=== PATIENT | female | born 1950 | race Caucasian/White ===

== ENCOUNTER → 2016-05-13 | Outpatient (CLI) | payer MEDICARE, MEDICAID ==
[~2016-05-13] MED LIST: ACIDOPHILIS; AMOXICILLIN 8751 TAB PO; ASPIRIN 81M81 MG/TA2 PO; CALCIUM 600MG+D1 TAB PO; CELLCEPT 250MG250 MG; CELLCEPT 5500 MG/TAB PO; CHLORZOXAZONE500 MG PO; CIPRO 500MG TA500 MG PO; DOMPERIDONE PO; FLAGYL500 MG PO; FLOVENT 44MCG I13 GM IH; GLUCOSAMINE & C1 CA1 PO; IMURAN 50MG TAB50 MG PO; IPRATROPIUM BROM3 M1; IPRATROPIUM BROM3 M1 IH; LEVAQUIN 5500 MG/TA1 PO; LEVAQUIN 750MG750 M1 PO; MASON NATURAL1200 MG PO; MIRALAX PA17 GM/Dose PO; MIRALAX510G PO; MOBIC 7.5MG7.5 MG PO; NORCO 325 MG-51 TAB PO; PREDNISONE 5MG5 MG PO; PREDNISONE20 MG PO; PRILOSEC 20MG20 MG PO; PRISTIQ 50 MG T50 MG PO; PROAIR HFA0.09 MG/AC IH; SYSTANE BALANCE10 M1 OP; ULTRAM 50MG TAB50 MG PO; ZOFRAN 4MG T4 MG/TAB PO; domperidone
[2016-05-13 08:42] LABS: BASO # 0.1 (0.0-0.2); BASO % 0.5 % (0.0-2.0); EOS # 0.3 (0.0-0.7); EOS % 2.8 % (0-4.0); GRAN # 6.7 (1.4-6.5); GRAN % 62.8 % (42.2-75.2); HEMATOCRIT 41.8 % (37.0-47.0); HEMOGLOBIN 13.6 g/dl (12.5-16.0); LYMPH % 28.5 % (20.0-51.0); MEAN CELL VOLUME 92 fl (80.0-100.0); MEAN CORPUSCULAR HEMOGLOBIN 30 pg (27.0-31.0); MEAN CORPUSCULAR HGB CONC 33 g/dl (33.0-37.0); MEAN PLATELET VOLUME 9.6 fl (7.4-10.4); MONO # 0.5 (0.1-0.6); PLATELET COUNT 248 K/mm3 (130-400); RED BLOOD COUNT 4.55 M/mm3 (4.10-5.30); REDCELL DISTRIBUTION WIDTH-CV 12.5 % (11.5-14.5); WHITE BLOOD COUNT 10.6 K/mm3 (4.8-10.8)
[2016-05-13 08:56] LABS: BILIRUBIN,TOTAL 1.2 mg/dL (0.0-1.0); CREATININE, serum 0.64 mg/dL (0.52-1.25); TOTAL PROTEIN 7.2 gm/dL (6.4-8.2)
[2016-05-13 10:27] LABS: POTASSIUM 4.4 mmol/L (3.4-5.0)
== END ==
LOC: COL.LAB 08:03
PROVIDERS: Physician Assistant
DX: K75.4 Autoimmune hepatitis (principal); R74.8 Abnormal levels of other serum enzymes; R10.84 Generalized abdominal pain

== ENCOUNTER 2016-05-29 11:05 | Inpatient (IN) | payer MEDICARE, MEDICAID ==
[~2016-05-29] VITALS: Ht 157.5 cm; Wt 113.8 kg
[~2016-05-29 11:05] MED LIST changes: -ACIDOPHILIS; -AMOXICILLIN 8751 TAB PO; -ASPIRIN 81M81 MG/TA2 PO; -CALCIUM 600MG+D1 TAB PO; -CELLCEPT 250MG250 MG; -CELLCEPT 5500 MG/TAB PO; -FLOVENT 44MCG I13 GM IH; -LEVAQUIN 750MG750 M1 PO; -PROAIR HFA0.09 MG/AC IH
[2016-05-29 12:16] LABS: INFLUENZA B NEGATIVE
[2016-05-29 12:22] LABS: HEMATOCRIT 38.8 % (37.0-47.0); MEAN CELL VOLUME 91 fl (80.0-100.0); MEAN CORPUSCULAR HEMOGLOBIN 31 pg (27.0-31.0); MEAN CORPUSCULAR HGB CONC 34 g/dl (33.0-37.0); MEAN PLATELET VOLUME 9.5 fl (7.4-10.4); PLATELET COUNT 240 K/mm3 (130-400); RED BLOOD COUNT 4.25 M/mm3 (4.10-5.30); REDCELL DISTRIBUTION WIDTH-CV 12.8 % (11.5-14.5)
[2016-05-29 12:25] LABS: ADD PATHOLOGY DIFF REVIEW NO; WHITE BLOOD COUNT 30.5 K/mm3 (4.8-10.8)
[2016-05-29 12:34] LABS: ADJUSTED CALCIUM 9.5 mg/dL (8.4-10.2); BILIRUBIN,TOTAL 2.4 mg/dL (0.0-1.0); CALCIUM 9.5 mg/dL (8.4-10.2); CREATININE, serum 0.78 mg/dL (0.52-1.25); POTASSIUM 4.1 mmol/L (3.4-5.0); TOTAL PROTEIN 7.2 gm/dL (6.4-8.2)
[2016-05-29 12:51] LABS: TROPONIN-I 0.058 ng/mL (0.000-0.034)
[2016-05-29] MEDS ORDERED: CELLCEPT 250MG250 MG (12:59)
[2016-05-29 13:40] LABS: EOSINOPHIL 1 % (0-4); NEUTROPHILS 80 % (42.0-75.2)
[2016-05-29 13:41] LABS: BAND 4 % (0-10); TOTAL CELLS COUNTED 200
[2016-05-29] MEDS ORDERED: CELLCEPT 5500 MG/TAB PO (16:51)
[2016-05-29] MEDS ORDERED: GLUCOSAMINE & C1 CA1 PO (16:52)
[2016-05-29] MEDS ORDERED: PREDNISONE 5MG5 MG PO (16:53)
[2016-05-29] MEDS ORDERED: CALCIUM 600MG+D1 TAB PO (16:53)
[2016-05-29] MEDS ORDERED: ACIDOPHILIS (16:54)
[2016-05-29] MEDS ORDERED: ULTRAM 50MG TAB50 MG PO (16:55)
[2016-05-29 16:56] VITALS: BP 115/74; PULSE 80
[2016-05-29] MEDS ORDERED: NORCO 325 MG-51 TAB PO (16:56)
[2016-05-29] MEDS ORDERED: FLOVENT 44MCG I13 GM IH (17:10)
[2016-05-29] MEDS ORDERED: PROAIR HFA0.09 MG/AC IH (17:10)
[2016-05-29 17:45] LABS: INR 1.2 (0.8-3.0); PROTHROMBIN TIME 13.8 SECONDS (9.7-12.8)
[2016-05-29 17:48] LABS: PARTIAL THROMBOPLASTIN TIME 34.6 SECONDS (26.0-37.0)
[2016-05-29 19:43] VITALS: BP 145/62; PULSE 94; TEMP 98.2
[2016-05-29 20:35] LABS: PH 5 (5-8); URINE APPEARANCE Clear; URINE BACTERIA None Seen /hpf; URINE BILIRUBIN Negative (NEGATIVE); URINE BLOOD 2+ (NEGATIVE); URINE COLOR Yellow; URINE GLUCOSE 2+ (NEGATIVE); URINE KETONE Negative (NEGATIVE); URINE RBC 0-2 /hpf; URINE UROBILINOGEN Negative (NEGATIVE); URINE WBC None Seen /hpf
[2016-05-30 00:42] VITALS: BP 105/51; PULSE 66; TEMP 98.5
[2016-05-30 05:04] VITALS: BP 124/60; PULSE 78; TEMP 97.2
[2016-05-30 07:33] VITALS: BP 149/81; PULSE 86; TEMP 98.6
[2016-05-30 08:13] LABS: ADJUSTED CALCIUM 9.4 mg/dL (8.4-10.2); ALBUMIN 3.8 gm/dL (3.5-5.0); CALCIUM 9.2 mg/dL (8.4-10.2); CREATININE, serum 0.63 mg/dL (0.52-1.25); POTASSIUM 4.2 mmol/L (3.4-5.0); TOTAL PROTEIN 7.1 gm/dL (6.4-8.2)
[2016-05-30 08:24] LABS: TROPONIN-I 0.017 ng/mL (0.000-0.034)
[2016-05-30 08:26] LABS: HEMATOCRIT 37.9 % (37.0-47.0); HEMOGLOBIN 12.3 g/dl (12.5-16.0); MEAN CELL VOLUME 92 fl (80.0-100.0); MEAN CORPUSCULAR HEMOGLOBIN 30 pg (27.0-31.0); MEAN CORPUSCULAR HGB CONC 33 g/dl (33.0-37.0); MEAN PLATELET VOLUME 10.3 fl (7.4-10.4); PLATELET COUNT 218 K/mm3 (130-400); REDCELL DISTRIBUTION WIDTH-CV 12.7 % (11.5-14.5)
[2016-05-30 08:54] LABS: WHITE BLOOD COUNT 29.9 K/mm3 (4.8-10.8)
[2016-05-30 08:55] LABS: ADD PATHOLOGY DIFF REVIEW NO
[2016-05-30 11:02] LABS: BAND 4 % (0-10); NEUTROPHILS 89 % (42.0-75.2); PLATELET ESTIMATE NORMAL (NORMAL)
[2016-05-30 11:03] LABS: TOTAL CELLS COUNTED 100
[2016-05-30 11:33] VITALS: BP 147/74; PULSE 65; TEMP 98.2
[2016-05-30 15:52] VITALS: BP 131/65; PULSE 78; TEMP 98.1
[2016-05-30 21:16] VITALS: BP 154/94; PULSE 91; TEMP 97.3
[2016-05-31 01:54] VITALS: BP 122/55; PULSE 66; TEMP 97.4
[2016-05-31 03:53] VITALS: BP 119/47; PULSE 80; TEMP 98.4
[2016-05-31 07:29] LABS: ADD PATHOLOGY DIFF REVIEW NO
[2016-05-31 07:49] VITALS: BP 117/50; PULSE 69; TEMP 97.6
[2016-05-31 08:15] LABS: HEMATOCRIT 37.4 % (37.0-47.0); MEAN CELL VOLUME 95 fl (80.0-100.0); MEAN CORPUSCULAR HEMOGLOBIN 30 pg (27.0-31.0); MEAN CORPUSCULAR HGB CONC 31 g/dl (33.0-37.0); MEAN PLATELET VOLUME 10.3 fl (7.4-10.4); PLATELET COUNT 236 K/mm3 (130-400); RED BLOOD COUNT 3.92 M/mm3 (4.10-5.30); REDCELL DISTRIBUTION WIDTH-CV 12.9 % (11.5-14.5)
[2016-05-31 08:52] LABS: HEMOGLOBIN 11.6 g/dl (12.5-16.0); WHITE BLOOD COUNT 24.2 K/mm3 (4.8-10.8)
[2016-05-31 10:52] VITALS: BP 97/44; PULSE 64; TEMP 98.3
[2016-05-31] MEDS ORDERED: LEVAQUIN 750MG750 M1 PO (11:18)
[2016-05-31] MEDS ORDERED: PROAIR HFA0.09 MG/AC IH (11:23)
[2016-05-31] MEDS ORDERED: FLOVENT 44MCG I13 GM IH (11:24)
[2016-05-31] MEDS ORDERED: ASPIRIN 81M81 MG/TA2 PO (11:45)
[2016-05-31 14:20] LABS: BAND 4 % (0-10); NEUTROPHILS 68 % (42.0-75.2)
[2016-05-31 14:21] LABS: TOXIC GRANULATION PRESENT
[2016-05-31 14:27] LABS: TOTAL CELLS COUNTED 100
[2016-05-31 14:28] LABS: PLATELET ESTIMATE NORMAL (NORMAL)
== END 2016-05-31 14:00 | disposition home or self-care (01) | DRG 871 ==
LOC: COL.ER 11:05 → MEDICAL 13:33
PROVIDERS: Internal Medicine; Physician Assistant
DX: A41.9 Sepsis, unspecified organism (principal); J18.9 Pneumonia, unspecified organism; J44.9 Chronic obstructive pulmonary disease, unspecified; K75.4 Autoimmune hepatitis; E11.9 Type 2 diabetes mellitus without complications; K21.9 Gastro-esophageal reflux disease without esophagitis; G47.33 Obstructive sleep apnea (adult) (pediatric); F32.9 Major depressive disorder, single episode, unspecified
CPT/HCPCS: 99223-AI; 99233-AI; 99239; J0696; J1650; J1815; J1956; J2270; J7030; J7512; Q9967

== ENCOUNTER → 2016-06-06 | Outpatient (CLI) | payer MEDICARE, MEDICAID ==
[~2016-06-06] MED LIST changes: +ACIDOPHILIS; +AMOXICILLIN 8751 TAB PO; +ASPIRIN 81M81 MG/TA2 PO; +CALCIUM 600MG+D1 TAB PO; +CELLCEPT 250MG250 MG; +CELLCEPT 5500 MG/TAB PO; +FLOVENT 44MCG I13 GM IH; +LEVAQUIN 750MG750 M1 PO; +PROAIR HFA0.09 MG/AC IH
== END ==
LOC: COL.CARD 10:29
DX: Z53.9 Procedure and treatment not carried out, unspecified reason (principal)

== ENCOUNTER → 2016-06-11 | Outpatient (CLI) | payer MEDICARE, MEDICAID | LOC: COL.LAB 10:32 | DX: Z53.9 Procedure and treatment not carried out, unspecified reason (principal) ==

== ENCOUNTER 2016-06-24 21:18 | Emergency (ER) | payer MEDICARE, MEDICAID ==
[~2016-06-24] VITALS: Ht 157.5 cm; Wt 105.5 kg
[~2016-06-24 21:18] MED LIST changes: -AMOXICILLIN 8751 TAB PO
[2016-06-24 21:55] LABS: BASO % 0.3 % (0.0-2.0); EOS # 0.2 (0.0-0.7); EOS % 1.3 % (0-4.0); GRAN # 8.2 (1.4-6.5); GRAN % 68.8 % (42.2-75.2); HEMATOCRIT 40.2 % (37.0-47.0); HEMOGLOBIN 12.8 g/dl (12.5-16.0); LYMPH # 2.9 (1.2-3.4); LYMPH % 24.2 % (20.0-51.0); MEAN CELL VOLUME 93 fl (80.0-100.0); MEAN CORPUSCULAR HEMOGLOBIN 30 pg (27.0-31.0); MEAN CORPUSCULAR HGB CONC 32 g/dl (33.0-37.0); MEAN PLATELET VOLUME 9.8 fl (7.4-10.4); MONO # 0.6 (0.1-0.6); MONO % 4.7 % (1.7-9.3); PLATELET COUNT 233 K/mm3 (130-400); RED BLOOD COUNT 4.32 M/mm3 (4.10-5.30); REDCELL DISTRIBUTION WIDTH-CV 13.4 % (11.5-14.5); WHITE BLOOD COUNT 11.9 K/mm3 (4.8-10.8)
[2016-06-24 22:04] LABS: ADJUSTED CALCIUM 9.1 mg/dL (8.4-10.2); ALANINE AMINOTRANSFERASE 170 U/L (9-52); ALBUMIN 4.1 gm/dL (3.5-5.0); ALKALINE PHOSPHATASE 170 U/L (50-136); ANION GAP 11 mmol/L (7-16); BILIRUBIN,TOTAL 0.9 mg/dL (0.0-1.0); BLOOD UREA NITROGEN 12 mg/dL (7-17); CALCIUM 9.2 mg/dL (8.4-10.2); CARBON DIOXIDE 25 mmol/L (22-30); CHLORIDE 104 mmol/L (98-107); CREATININE, serum 0.77 mg/dL (0.52-1.25); GLUCOSE 177 mg/dL (74-106); POTASSIUM 4.2 mmol/L (3.4-5.0); SODIUM 140 mmol/L (137-145); TOTAL PROTEIN 7.4 gm/dL (6.4-8.2)
[2016-06-24 22:08] LABS: INR 0.9 (0.8-3.0); PROTHROMBIN TIME 10.3 SECONDS (9.7-12.8)
[2016-06-24 22:11] LABS: PARTIAL THROMBOPLASTIN TIME 33.7 SECONDS (26.0-37.0)
[2016-06-24 22:15] LABS: B-TYPE NATRIURETIC PEPTIDE 90 pg/mL (0-125); TROPONIN-I < 0.012 ng/mL (0.000-0.034)
[2016-06-24] MEDS ORDERED: AMOXICILLIN 8751 TAB PO (23:51)
[2016-06-24 23:55] VITALS: BP 125/77; PULSE 68
== END 2016-06-24 23:55 | disposition home or self-care (01) ==
LOC: COL.ER 21:18
PROVIDERS: Emergency Medicine
DX: R07.89 Other chest pain (principal); I10 Essential (primary) hypertension; K21.9 Gastro-esophageal reflux disease without esophagitis; J44.9 Chronic obstructive pulmonary disease, unspecified; J45.909 Unspecified asthma, uncomplicated

== ENCOUNTER → 2016-06-25 | Outpatient (CLI) | payer MEDICARE, MEDICAID ==
[~2016-06-25] MED LIST changes: +AMOXICILLIN 8751 TAB PO
[2016-06-25 10:21] LABS: BASO % 0.4 % (0.0-2.0); EOS # 0.3 (0.0-0.7); EOS % 2.6 % (0-4.0); GRAN # 6.5 (1.4-6.5); GRAN % 60.4 % (42.2-75.2); HEMATOCRIT 40.6 % (37.0-47.0); HEMOGLOBIN 12.8 g/dl (12.5-16.0); LYMPH # 3.4 (1.2-3.4); LYMPH % 31.5 % (20.0-51.0); MEAN CELL VOLUME 93 fl (80.0-100.0); MEAN CORPUSCULAR HEMOGLOBIN 29 pg (27.0-31.0); MEAN CORPUSCULAR HGB CONC 32 g/dl (33.0-37.0); MEAN PLATELET VOLUME 9.5 fl (7.4-10.4); MONO # 0.5 (0.1-0.6); MONO % 4.5 % (1.7-9.3); PLATELET COUNT 226 K/mm3 (130-400); RED BLOOD COUNT 4.37 M/mm3 (4.10-5.30); REDCELL DISTRIBUTION WIDTH-CV 13.4 % (11.5-14.5); WHITE BLOOD COUNT 10.8 K/mm3 (4.8-10.8)
== END ==
LOC: COL.LAB 09:45
PROVIDERS: Physician Assistant
DX: K75.4 Autoimmune hepatitis (principal); J18.8 Other pneumonia, unspecified organism

== ENCOUNTER 2016-07-04 08:30 | Outpatient (RCR) | payer MEDICARE, MEDICAID | END 2016-09-24 | disposition home or self-care (01) | LOC: WSST | DX: T17.320A Food in larynx causing asphyxiation, initial encounter (principal); K21.9 Gastro-esophageal reflux disease without esophagitis; H69.81 Other specified disorders of Eustachian tube, right ear | CPT/HCPCS: G8996-GN; G8997-GN; G8998-GN ==

== ENCOUNTER → 2016-07-04 | Outpatient (CLI) | payer MEDICARE, MEDICAID | LOC: COL.RAD 07-02 08:30 | DX: T17.320A Food in larynx causing asphyxiation, initial encounter (principal); K21.9 Gastro-esophageal reflux disease without esophagitis; H69.81 Other specified disorders of Eustachian tube, right ear | CPT/HCPCS: G8996-GN; G8997-GN; G8998-GN ==

== ENCOUNTER → 2016-07-08 | Outpatient (CLI) | payer MEDICARE, MEDICAID | LOC: MC.RAD 08:20 | DX: Z12.31 Encounter for screening mammogram for malignant neoplasm of breast (principal) ==

== ENCOUNTER → 2016-08-06 | Outpatient (CLI) | payer MEDICARE, MEDICAID ==
[2016-08-06 08:29] LABS: BASO % 0.2 % (0.0-2.0); EOS # 0.2 (0.0-0.7); EOS % 1.5 % (0-4.0); GRAN # 10.2 (1.4-6.5); GRAN % 68.5 % (42.2-75.2); HEMOGLOBIN 12.7 g/dl (12.5-16.0); LYMPH # 3.4 (1.2-3.4); LYMPH % 22.9 % (20.0-51.0); MEAN CELL VOLUME 93 fl (80.0-100.0); MEAN CORPUSCULAR HEMOGLOBIN 30 pg (27.0-31.0); MEAN CORPUSCULAR HGB CONC 32 g/dl (33.0-37.0); MEAN PLATELET VOLUME 9.3 fl (7.4-10.4); MONO # 0.9 (0.1-0.6); MONO % 6.3 % (1.7-9.3); PLATELET COUNT 224 K/mm3 (130-400); RED BLOOD COUNT 4.31 M/mm3 (4.10-5.30); REDCELL DISTRIBUTION WIDTH-CV 14.2 % (11.5-14.5); WHITE BLOOD COUNT 14.8 K/mm3 (4.8-10.8)
[2016-08-06 08:44] LABS: ADJUSTED CALCIUM 9.1 mg/dL (8.4-10.2); ALBUMIN 3.9 gm/dL (3.5-5.0); BILIRUBIN,TOTAL 1.4 mg/dL (0.0-1.0); CREATININE, serum 0.72 mg/dL (0.52-1.25); POTASSIUM 3.9 mmol/L (3.4-5.0); TOTAL PROTEIN 6.7 gm/dL (6.4-8.2)
== END ==
LOC: COL.LAB 07:46
PROVIDERS: Physician Assistant
DX: K75.4 Autoimmune hepatitis (principal); R74.8 Abnormal levels of other serum enzymes; R10.9 Unspecified abdominal pain

== ENCOUNTER → 2016-08-28 | Outpatient (CLI) | payer MEDICARE, MEDICAID | LOC: SUN.DIA 09:00 | DX: E11.65 Type 2 diabetes mellitus with hyperglycemia (principal); E11.42 Type 2 diabetes mellitus with diabetic polyneuropathy; Z68.42 Body mass index [BMI] 45.0-49.9, adult; E66.9 Obesity, unspecified; Z71.3 Dietary counseling and surveillance; E78.5 Hyperlipidemia, unspecified; I10 Essential (primary) hypertension; K75.4 Autoimmune hepatitis; K21.9 Gastro-esophageal reflux disease without esophagitis; R13.10 Dysphagia, unspecified; Z87.891 Personal history of nicotine dependence | CPT/HCPCS: G0108 ==

== ENCOUNTER → 2016-09-18 | Outpatient (CLI) | payer MEDICARE, MEDICAID | LOC: SUN.DIA 10:57 | DX: E11.65 Type 2 diabetes mellitus with hyperglycemia (principal); E66.9 Obesity, unspecified; Z68.41 Body mass index [BMI] 40.0-44.9, adult; Z71.3 Dietary counseling and surveillance; E78.5 Hyperlipidemia, unspecified; I10 Essential (primary) hypertension ==

== ENCOUNTER 2016-11-18 11:00 | Outpatient (RCR) | payer MEDICARE, MEDICAID | END 2016-11-21 | disposition still patient (30) | LOC: WSPT | DX: G57.01 Lesion of sciatic nerve, right lower limb (principal); M70.61 Trochanteric bursitis, right hip; K75.4 Autoimmune hepatitis; E11.9 Type 2 diabetes mellitus without complications; M75.51 Bursitis of right shoulder; M75.52 Bursitis of left shoulder; Z87.891 Personal history of nicotine dependence | CPT/HCPCS: G8978-GP; G8979-GP ==

== ENCOUNTER 2016-11-19 10:30 | Outpatient (RCR) | payer MEDICARE, MEDICAID ==
[2017-01-20] MEDS ORDERED: FLAGYL500 MG PO (10:12)
[2017-01-20] MEDS ORDERED: ZOFRAN 4MG T4 MG/TAB PO (10:12)
[2017-01-20] MEDS ORDERED: CIPRO 500MG TA500 MG PO (10:12)
[2017-01-20] MEDS ORDERED: NORCO 325 MG-51 TAB PO (10:12)
[2017-02-03] MEDS ORDERED: COLACE 100100 MG/CAP PO (18:21)
[2017-02-03] MEDS ORDERED: PERCOCET 325 MG1 TA2 PO (18:21)
== END 2017-02-09 | disposition home or self-care (01) ==
LOC: WSST
DX: R13.12 Dysphagia, oropharyngeal phase (principal)
CPT/HCPCS: G8996-GN; G8997-GN

== ENCOUNTER → 2016-11-26 | Outpatient (CLI) | payer MEDICARE, MEDICAID | LOC: SUN.DIA 10-29 15:28 | DX: E11.40 Type 2 diabetes mellitus with diabetic neuropathy, unspecified (principal); E78.5 Hyperlipidemia, unspecified; I10 Essential (primary) hypertension; E66.9 Obesity, unspecified; Z68.41 Body mass index [BMI] 40.0-44.9, adult; Z71.3 Dietary counseling and surveillance; Z87.891 Personal history of nicotine dependence ==

== ENCOUNTER 2016-12-02 09:29 | Outpatient (RCR) | payer MEDICARE, MEDICAID | END 2016-12-05 09:57 | LOC: WSPT 09:29 | DX: Z01.89 Encounter for other specified special examinations (principal) ==

== ENCOUNTER 2017-01-20 07:01 | Emergency (ER) | payer MEDICARE, MEDICAID ==
[~2017-01-20] VITALS: Ht 152.4 cm; Wt 98.6 kg
[2017-01-20 07:04] VITALS: TEMP 98.7
[2017-01-20 08:18] LABS: BASO % 0.3 % (0.0-2.0); EOS # 0.2 (0.0-0.7); EOS % 2.2 % (0-4.0); GRAN # 6.2 (1.4-6.5); GRAN % 67.1 % (42.2-75.2); HEMATOCRIT 34.9 % (37.0-47.0); LYMPH # 2.1 (1.2-3.4); LYMPH % 22.3 % (20.0-51.0); MEAN CELL VOLUME 91 fl (80.0-100.0); MEAN CORPUSCULAR HEMOGLOBIN 29 pg (27.0-31.0); MEAN CORPUSCULAR HGB CONC 32 g/dl (33.0-37.0); MEAN PLATELET VOLUME 9.4 fl (7.4-10.4); MONO # 0.7 (0.1-0.6); MONO % 7.9 % (1.7-9.3); PLATELET COUNT 209 K/mm3 (130-400); RED BLOOD COUNT 3.82 M/mm3 (4.10-5.30); REDCELL DISTRIBUTION WIDTH-CV 14.1 % (11.5-14.5); WHITE BLOOD COUNT 9.2 K/mm3 (4.8-10.8)
[2017-01-20 08:39] LABS: ADJUSTED CALCIUM 8.9 mg/dL (8.4-10.2); ALBUMIN 3.7 gm/dL (3.5-5.0); BILIRUBIN,TOTAL 1.1 mg/dL (0.0-1.0); CALCIUM 8.7 mg/dL (8.4-10.2); CREATININE, serum 0.65 mg/dL (0.52-1.25); TOTAL PROTEIN 6.5 gm/dL (6.4-8.2)
[2017-01-20 09:38] LABS: PH 7 (5-8); SQUAMOUS EPITHELIAL 0-2 /hpf; URINE APPEARANCE Clear; URINE BACTERIA Rare /hpf; URINE BILIRUBIN Negative (NEGATIVE); URINE BLOOD 1+ (NEGATIVE); URINE COLOR Straw; URINE GLUCOSE Negative (NEGATIVE); URINE KETONE Negative (NEGATIVE); URINE RBC 0-2 /hpf; URINE UROBILINOGEN Negative (NEGATIVE); URINE WBC 0-2 /hpf
[2017-01-20] MEDS ORDERED: NORCO 325 MG-51 TAB PO (10:12)
[2017-01-20] MEDS ORDERED: FLAGYL500 MG PO (10:12)
[2017-01-20] MEDS ORDERED: ZOFRAN 4MG T4 MG/TAB PO (10:12)
[2017-01-20] MEDS ORDERED: CIPRO 500MG TA500 MG PO (10:12)
[2017-01-20 10:29] VITALS: BP 117/70; PULSE 78
== END 2017-01-20 10:40 | disposition home or self-care (01) ==
LOC: COL.ER 07:01
PROVIDERS: Emergency Medicine
DX: K57.92 Diverticulitis of intestine, part unspecified, without perforation or abscess without bleeding (principal); Z79.82 Long term (current) use of aspirin; E11.9 Type 2 diabetes mellitus without complications; J44.9 Chronic obstructive pulmonary disease, unspecified; F32.9 Major depressive disorder, single episode, unspecified; Z87.891 Personal history of nicotine dependence; Z87.19 Personal history of other diseases of the digestive system; Z90.711 Acquired absence of uterus with remaining cervical stump; Z90.89 Acquired absence of other organs; Z98.890 Other specified postprocedural states
CPT/HCPCS: J2405; J3010; J7030; Q9967

== ENCOUNTER 2017-02-03 13:32 | Day surgery (SDC) | payer MEDICARE, MEDICAID ==
[2017-02-03] VITALS (8 sets, daily range): BP systolic 99–158; BP diastolic 53–84; PULSE 62–78; TEMP 98–98.7
[~2017-02-03] VITALS: Ht 152.4 cm; Wt 98.9 kg
[2017-02-03] MEDS ORDERED: COLACE 100100 MG/CAP PO (18:21)
[2017-02-03] MEDS ORDERED: PERCOCET 325 MG1 TA2 PO (18:21)
== END 2017-02-03 23:25 | disposition home or self-care (01) ==
LOC: SDCO 13:32 → SURG 18:10 → SDCO 21:13 → SURG 23:25 → SDCO 23:25
DX: K81.1 Chronic cholecystitis (principal); K21.9 Gastro-esophageal reflux disease without esophagitis; J44.9 Chronic obstructive pulmonary disease, unspecified; K57.92 Diverticulitis of intestine, part unspecified, without perforation or abscess without bleeding; G47.33 Obstructive sleep apnea (adult) (pediatric); E11.40 Type 2 diabetes mellitus with diabetic neuropathy, unspecified; K75.4 Autoimmune hepatitis; Z68.41 Body mass index [BMI] 40.0-44.9, adult; M79.7 Fibromyalgia; M19.90 Unspecified osteoarthritis, unspecified site; R20.2 Paresthesia of skin; R13.10 Dysphagia, unspecified; F17.210 Nicotine dependence, cigarettes, uncomplicated; D64.9 Anemia, unspecified; Z88.8 Allergy status to other drugs, medicaments and biological substances
CPT/HCPCS: OP; J1100; J1170; J1885; J2405; J2704; J2710; J2765; J3010; J7030; Q9967

== ENCOUNTER → 2017-03-25 | Outpatient (CLI) | payer MEDICARE, MEDICAID ==
[~2017-03-25] MED LIST changes: +COLACE 100100 MG/CAP PO; +PERCOCET 325 MG1 TA2 PO
== END ==
LOC: SUN.DIA 09:33
DX: E11.40 Type 2 diabetes mellitus with diabetic neuropathy, unspecified (principal); E78.5 Hyperlipidemia, unspecified; I10 Essential (primary) hypertension; E66.9 Obesity, unspecified; Z68.41 Body mass index [BMI] 40.0-44.9, adult; Z71.3 Dietary counseling and surveillance; Z87.891 Personal history of nicotine dependence
CPT/HCPCS: G0108

== ENCOUNTER → 2017-05-16 | Outpatient (CLI) | payer MEDICARE, MEDICAID ==
[~2017-05-16] VITALS: Ht 157.5 cm; Wt 96.1 kg
[~2017-05-16] MED LIST changes: -ACIDOPHILIS; +ACIDOPHILIS PO; +ASPIRIN E.C. 8181 MG PO; +BACTROBAN NASA0.9 GM NS; +DOXYCYCLINE 10100 MG PO
[2017-05-16 08:28] VITALS: BP 150/75; PULSE 67
[2017-05-16 10:22] VITALS: BP 141/65; PULSE 87
[2017-05-16 10:30] VITALS: BP 109/40; PULSE 79
[2017-05-16 10:45] VITALS: BP 122/73; PULSE 79
[2017-05-16 11:00] VITALS: BP 134/80; PULSE 82
== END ==
LOC: COL.RAD 08:02
DX: M16.0 Bilateral primary osteoarthritis of hip (principal); M70.62 Trochanteric bursitis, left hip; M70.61 Trochanteric bursitis, right hip; M76.11 Psoas tendinitis, right hip; M47.816 Spondylosis without myelopathy or radiculopathy, lumbar region; Z98.890 Other specified postprocedural states
CPT/HCPCS: G9654; J2405; J2704; J3010

== ENCOUNTER 2017-06-16 21:21 | Emergency (ER) | payer MEDICARE, MEDICAID ==
[~2017-06-16] VITALS: Ht 165.1 cm; Wt 93.6 kg
[2017-06-16 21:24] VITALS: BP 136/68; TEMP 101.6
[2017-06-16] MEDS ORDERED: TAMIFLU 75MG75 MG PO (22:42)
[2017-06-16 22:56] VITALS: PULSE 72
== END 2017-06-16 22:56 | disposition home or self-care (01) ==
LOC: COL.ER 21:21
DX: J10.1 Influenza due to other identified influenza virus with other respiratory manifestations (principal); E11.9 Type 2 diabetes mellitus without complications; I10 Essential (primary) hypertension; J44.9 Chronic obstructive pulmonary disease, unspecified; K75.4 Autoimmune hepatitis; F32.9 Major depressive disorder, single episode, unspecified; Z87.19 Personal history of other diseases of the digestive system; Z90.710 Acquired absence of both cervix and uterus; Z90.89 Acquired absence of other organs; Z98.890 Other specified postprocedural states; Z79.82 Long term (current) use of aspirin; Z79.51 Long term (current) use of inhaled steroids

== ENCOUNTER 2017-07-02 05:51 | Emergency (ER) | payer MEDICARE, MEDICAID ==
[~2017-07-02] VITALS: Ht 157.5 cm; Wt 93.6 kg
[~2017-07-02 05:51] MED LIST changes: +TAMIFLU 75MG75 MG PO
[2017-07-02 05:54] VITALS: TEMP 97.2
[2017-07-02 06:16] LABS: BASO % 0.3 % (0.0-2.0); EOS # 0.2 (0.0-0.7); EOS % 1.8 % (0-4.0); GRAN % 61.5 % (42.2-75.2); HEMATOCRIT 38.2 % (37.0-47.0); HEMOGLOBIN 12.5 g/dl (12.5-16.0); LYMPH # 3.5 (1.2-3.4); LYMPH % 30.7 % (20.0-51.0); MEAN CELL VOLUME 90 fl (80.0-100.0); MEAN CORPUSCULAR HEMOGLOBIN 30 pg (27.0-31.0); MEAN CORPUSCULAR HGB CONC 33 g/dl (33.0-37.0); MEAN PLATELET VOLUME 9.2 fl (7.4-10.4); MONO # 0.6 (0.1-0.6); MONO % 5.4 % (1.7-9.3); PLATELET COUNT 255 K/mm3 (130-400); RED BLOOD COUNT 4.23 M/mm3 (4.10-5.30); REDCELL DISTRIBUTION WIDTH-CV 13.4 % (11.5-14.5)
[2017-07-02 06:25] LABS: ALANINE AMINOTRANSFERASE 27 U/L (9-52); ALBUMIN 4.2 gm/dL (3.5-5.0); ALKALINE PHOSPHATASE 94 U/L (50-136); ANION GAP 10 mmol/L (7-16); AST,SGOT 20 U/L (15-37); BILIRUBIN,TOTAL 0.4 mg/dL (0.0-1.0); BLOOD UREA NITROGEN 15 mg/dL (7-17); CALCIUM 8.9 mg/dL (8.4-10.2); CARBON DIOXIDE 27 mmol/L (22-30); CHLORIDE 105 mmol/L (98-107); CREATININE, serum 0.66 mg/dL (0.52-1.25); GLUCOSE 101 mg/dL (74-106); POTASSIUM 4.4 mmol/L (3.4-5.0); SODIUM 142 mmol/L (137-145)
[2017-07-02 06:34] LABS: PROTHROMBIN TIME 11.7 SECONDS (9.7-12.8)
[2017-07-02 06:49] LABS: TROPONIN-I < 0.012 ng/mL (0.000-0.034)
[2017-07-02] MEDS ORDERED: ARMONAIR RESPI55 MCG IH (08:59)
[2017-07-02] MEDS ORDERED: COLACE 100100 MG/CAP PO (09:00)
[2017-07-02] MEDS ORDERED: CALCIUM CARBON650 M2 PO (09:01)
[2017-07-02 10:38] VITALS: BP 117/65; PULSE 66
== END 2017-07-02 10:48 | disposition home or self-care (01) ==
LOC: COL.ER 05:51
PROVIDERS: Emergency Medicine
DX: R07.89 Other chest pain (principal); E11.9 Type 2 diabetes mellitus without complications; J44.9 Chronic obstructive pulmonary disease, unspecified; Z87.19 Personal history of other diseases of the digestive system; Z90.710 Acquired absence of both cervix and uterus; Z90.89 Acquired absence of other organs; Z98.84 Bariatric surgery status; Z79.51 Long term (current) use of inhaled steroids; Z79.82 Long term (current) use of aspirin

== ENCOUNTER → 2017-07-04 | Outpatient (CLI) | payer MEDICARE, MEDICAID ==
[~2017-07-04] MED LIST changes: +ARMONAIR RESPI55 MCG IH; +CALCIUM CARBON650 M2 PO
== END ==
LOC: COL.RAD 09:45
DX: R93.2 Abnormal findings on diagnostic imaging of liver and biliary tract (principal); Z90.49 Acquired absence of other specified parts of digestive tract

== ENCOUNTER → 2017-07-17 | Outpatient (CLI) | payer MEDICARE, MEDICAID | LOC: SUN.DIA 12:18 | DX: Z01.89 Encounter for other specified special examinations (principal) ==

== ENCOUNTER 2017-08-28 15:48 | Emergency (ER) | payer MEDICARE, MEDICAID ==
[~2017-08-28] VITALS: Ht 154.9 cm; Wt 96.8 kg
[2017-08-28 15:50] VITALS: TEMP 97.3
[2017-08-28 16:35] LABS: COLLECTION METHOD CLEAN CATCH
[2017-08-28 16:42] LABS: MUCOUS Present /lpf; PH 5 (5-8); URINE APPEARANCE Clear; URINE BACTERIA None Seen /hpf; URINE BILIRUBIN Negative (NEGATIVE); URINE BLOOD 1+ (NEGATIVE); URINE COLOR Yellow; URINE GLUCOSE Negative (NEGATIVE); URINE KETONE Negative (NEGATIVE); URINE LEUKOCYTE ESTERASE Trace (NEGATIVE); URINE NITRATE Negative (NEGATIVE); URINE PROTEIN(semi-quant) Negative (NEGATIVE); URINE UROBILINOGEN Negative (NEGATIVE)
[2017-08-28 17:00] LABS: BASO % 0.3 % (0.0-2.0); EOS # 0.2 (0.0-0.7); EOS % 2.2 % (0-4.0); GRAN # 4.9 (1.4-6.5); GRAN % 62.1 % (42.2-75.2); HEMATOCRIT 38.5 % (37.0-47.0); HEMOGLOBIN 12.4 g/dl (12.5-16.0); LYMPH # 2.3 (1.2-3.4); LYMPH % 29.7 % (20.0-51.0); MEAN CELL VOLUME 91 fl (80.0-100.0); MEAN CORPUSCULAR HEMOGLOBIN 29 pg (27.0-31.0); MEAN CORPUSCULAR HGB CONC 32 g/dl (33.0-37.0); MEAN PLATELET VOLUME 9.9 fl (7.4-10.4); MONO # 0.4 (0.1-0.6); MONO % 5.4 % (1.7-9.3); PLATELET COUNT 207 K/mm3 (130-400); RED BLOOD COUNT 4.22 M/mm3 (4.10-5.30); REDCELL DISTRIBUTION WIDTH-CV 13.1 % (11.5-14.5)
[2017-08-28 17:15] LABS: TOTAL PROTEIN 7.2 gm/dL (6.4-8.2)
[2017-08-28 17:17] LABS: ALANINE AMINOTRANSFERASE 40 U/L (9-52); ALBUMIN 3.9 gm/dL (3.5-5.0); ALKALINE PHOSPHATASE 96 U/L (50-136); ANION GAP 12 mmol/L (7-16); AST,SGOT 41 U/L (15-37); BILIRUBIN,TOTAL 0.7 mg/dL (0.0-1.0); BLOOD UREA NITROGEN 14 mg/dL (7-17); C-REACTIVE PROTEIN 1.4 mg/dL (0.0-0.9); CARBON DIOXIDE 26 mmol/L (22-30); CHLORIDE 103 mmol/L (98-107); CREATININE, serum 0.67 mg/dL (0.52-1.25); GLUCOSE 121 mg/dL (74-106); POTASSIUM 3.9 mmol/L (3.4-5.0); SODIUM 141 mmol/L (137-145)
[2017-08-28 17:26] LABS: TROPONIN-I < 0.012 ng/mL (0.000-0.034)
[2017-08-28] MEDS ORDERED: ZOFRAN 4MG T4 MG/TAB PO (18:28)
[2017-08-28] MEDS ORDERED: ANTIVERT 25MG25 MG PO (18:28)
[2017-08-28 19:24] VITALS: BP 110/70; PULSE 70
== END 2017-08-28 19:27 | disposition home or self-care (01) ==
LOC: COL.ER 15:48
PROVIDERS: Emergency Medicine
DX: R42 Dizziness and giddiness (principal); J44.9 Chronic obstructive pulmonary disease, unspecified; E11.9 Type 2 diabetes mellitus without complications; F32.9 Major depressive disorder, single episode, unspecified; K75.4 Autoimmune hepatitis; Z87.891 Personal history of nicotine dependence; Z79.82 Long term (current) use of aspirin; Z79.51 Long term (current) use of inhaled steroids
CPT/HCPCS: J2060; J2405; J7030

== ENCOUNTER → 2017-09-01 | Outpatient (CLI) | payer MEDICARE, MEDICAID ==
[~2017-09-01] MED LIST changes: +ANTIVERT 25MG25 MG PO
== END ==
LOC: MC.RAD 09:40
DX: Z12.31 Encounter for screening mammogram for malignant neoplasm of breast (principal)

== ENCOUNTER 2017-09-02 18:44 | Emergency (ER) | payer MEDICARE, MEDICAID ==
[~2017-09-02] VITALS: Ht 154.9 cm; Wt 96.8 kg
[2017-09-02 18:52] VITALS: BP 150/62; TEMP 98.4
[2017-09-02 19:46] VITALS: PULSE 75
== END 2017-09-02 19:46 | disposition home or self-care (01) ==
LOC: COL.ER 18:44
DX: S80.11XA Contusion of right lower leg, initial encounter (principal); Z79.82 Long term (current) use of aspirin; Z79.51 Long term (current) use of inhaled steroids; Y92.410 Unspecified street and highway as the place of occurrence of the external cause; W01.0XXA Fall on same level from slipping, tripping and stumbling without subsequent striking against object, initial encounter

== ENCOUNTER 2017-09-22 09:58 | Emergency (ER) | payer MEDICARE, MEDICAID ==
[~2017-09-22] VITALS: Ht 152.4 cm; Wt 99.1 kg
[2017-09-22 10:16] VITALS: TEMP 98
[2017-09-22] MEDS ORDERED: PRISTIQ 50 MG T50 MG PO (10:30)
[2017-09-22] MEDS ORDERED: PRIL40 PO (10:31)
[2017-09-22 11:56] VITALS: BP 116/69; PULSE 74
== END 2017-09-22 11:56 | disposition home or self-care (01) ==
LOC: COL.ER 09:58
DX: S96.911A Strain of unspecified muscle and tendon at ankle and foot level, right foot, initial encounter (principal); R07.89 Other chest pain; Z79.82 Long term (current) use of aspirin; Z79.51 Long term (current) use of inhaled steroids; Z87.891 Personal history of nicotine dependence; W18.09XA Striking against other object with subsequent fall, initial encounter

== ENCOUNTER → 2017-09-25 | Outpatient (CLI) | payer MEDICARE, MEDICAID ==
[~2017-09-25] VITALS: Ht 152.4 cm; Wt 97.9 kg
[~2017-09-25] MED LIST changes: +PRIL40 PO
[2017-09-25 08:37] VITALS: BP 116/56; PULSE 66
[2017-09-25 09:30] VITALS: BP 100/58; PULSE 66
[2017-09-25 09:35] VITALS: BP 117/77; PULSE 66
[2017-09-25 10:00] VITALS: BP 120/75; PULSE 67
== END ==
LOC: COL.RAD 08:10
DX: M47.817 Spondylosis without myelopathy or radiculopathy, lumbosacral region (principal); M48.061 Spinal stenosis, lumbar region without neurogenic claudication; M51.36 Other intervertebral disc degeneration, lumbar region; J00 Acute nasopharyngitis [common cold]
CPT/HCPCS: G9654; J2704; J7030

== ENCOUNTER 2017-10-28 08:39 | Outpatient (RCR) | payer MEDICARE, MEDICAID | END 2017-12-02 15:40 | disposition home or self-care (01) | LOC: WSPT 08:39 | DX: M51.36 Other intervertebral disc degeneration, lumbar region (principal) | CPT/HCPCS: G8978-GP; G8979-GP ==

== ENCOUNTER 2017-11-03 08:24 | Emergency (ER) | payer MEDICARE, MEDICAID ==
[~2017-11-03] VITALS: Ht 154.9 cm; Wt 96.8 kg
[2017-11-03 08:28] VITALS: BP 129/59; TEMP 99.6
[2017-11-03 09:22] VITALS: PULSE 62
== END 2017-11-03 09:28 | disposition home or self-care (01) ==
LOC: COL.ER 08:24
DX: S43.401A Unspecified sprain of right shoulder joint, initial encounter (principal); I10 Essential (primary) hypertension; Z79.51 Long term (current) use of inhaled steroids; Z79.82 Long term (current) use of aspirin; W06.XXXA Fall from bed, initial encounter

== ENCOUNTER 2018-01-25 20:30 | Emergency (ER) | payer MEDICARE, MEDICAID ==
[~2018-01-25] VITALS: Ht 157.5 cm; Wt 98.6 kg
[2018-01-25 20:33] VITALS: TEMP 99.5
[2018-01-25 21:17] LABS: BASO % 0.2 % (0.0-2.0); EOS # 0.2 (0.0-0.7); EOS % 1.4 % (0-4.0); GRAN # 9.9 (1.4-6.5); GRAN % 81.2 % (42.2-75.2); HEMATOCRIT 38.5 % (37.0-47.0); HEMOGLOBIN 12.5 g/dl (12.5-16.0); LYMPH # 1.4 (1.2-3.4); LYMPH % 11.5 % (20.0-51.0); MEAN CELL VOLUME 92 fl (80.0-100.0); MEAN CORPUSCULAR HEMOGLOBIN 30 pg (27.0-31.0); MEAN CORPUSCULAR HGB CONC 33 g/dl (33.0-37.0); MEAN PLATELET VOLUME 8.6 fl (7.4-10.4); MONO # 0.7 (0.1-0.6); MONO % 5.4 % (1.7-9.3); PLATELET COUNT 268 K/mm3 (130-400); RED BLOOD COUNT 4.19 M/mm3 (4.10-5.30); REDCELL DISTRIBUTION WIDTH-CV 13.2 % (11.5-14.5)
[2018-01-25 21:32] LABS: BILIRUBIN,TOTAL 0.5 mg/dL (0.0-1.0); C-REACTIVE PROTEIN 3.6 mg/dL (0.0-0.9); CALCIUM 9.4 mg/dL (8.4-10.2); CREATININE, serum 0.6 mg/dL (0.52-1.25); POTASSIUM 4.2 mmol/L (3.4-5.0); TOTAL PROTEIN 7.4 gm/dL (6.4-8.2)
[2018-01-25 21:41] LABS: ERYTHROCYTE SEDIMENTATION RATE 34 mm/hr (0-30)
[2018-01-25] MEDS ORDERED: ROXICODONE 55 MG/TAB PO (21:51)
[2018-01-25] MEDS ORDERED: PHENERGAN 25 TA25 MG PO (21:52)
[2018-01-25 23:05] VITALS: BP 145/55; PULSE 85
== END 2018-01-25 23:05 | disposition home or self-care (01) ==
LOC: COL.ER 20:30
PROVIDERS: Emergency Medicine
DX: G89.18 Other acute postprocedural pain (principal); M25.511 Pain in right shoulder; E11.9 Type 2 diabetes mellitus without complications; F17.210 Nicotine dependence, cigarettes, uncomplicated; J44.9 Chronic obstructive pulmonary disease, unspecified; Z79.82 Long term (current) use of aspirin; Z79.51 Long term (current) use of inhaled steroids
CPT/HCPCS: J1170; J2550

== ENCOUNTER 2018-06-13 00:27 | Emergency (ER) | payer MEDICARE, MEDICAID ==
[~2018-06-13] VITALS: Ht 154.9 cm; Wt 97.7 kg
[~2018-06-13 00:27] MED LIST changes: +CENTANY2%; +CLOTRIM ANTIFUNGAL1% TP; +DOXYCYCLINE HY100 MG; +FLEXERIL 1010 MG/TAB PO; +MUCINEX1200 MG PO; +NITROSTAT0.4 MG/TAB SL; +NORCO 325 MG-7.1 TAB PO; +OCUFLOX OPHTH DR5 ML OP; +OMEGA-3 FISH1000 MG PO; +PATADAY 2.5 ML2.5 ML OU; +PHENERGAN 25 TA25 MG PO; +REGLAN 5MG T5 MG/TAB PO; +ROXICODONE 55 MG/TAB PO; +SINGULAIR 110 MG/TAB PO; +TESSALON P100 MG/CAP PO; +TRAVEL SICKNESS25 MG PO; +VENTOLIN0.09 MG IH; +VITAMIND3 5000 PO; +ZOFRAN ODT4 MG PO; +ZYRTEC 10MG10 MG PO
[2018-06-13 00:34] VITALS: TEMP 99.7
[2018-06-13 01:18] LABS: BASO % 0.3 % (0.0-2.0); EOS # 0.3 (0.0-0.7); EOS % 3.9 % (0-4.0); GRAN % 68.6 % (42.2-75.2); HEMATOCRIT 40.2 % (37.0-47.0); HEMOGLOBIN 13.1 g/dl (12.5-16.0); LYMPH # 1.4 (1.2-3.4); LYMPH % 19.2 % (20.0-51.0); MEAN CELL VOLUME 88 fl (80.0-100.0); MEAN CORPUSCULAR HEMOGLOBIN 29 pg (27.0-31.0); MEAN CORPUSCULAR HGB CONC 33 g/dl (33.0-37.0); MONO # 0.6 (0.1-0.6); MONO % 7.6 % (1.7-9.3); PLATELET COUNT 191 K/mm3 (130-400); RED BLOOD COUNT 4.55 M/mm3 (4.10-5.30); REDCELL DISTRIBUTION WIDTH-CV 13.9 % (11.5-14.5)
[2018-06-13 01:30] LABS: ALBUMIN 4.3 gm/dL (3.5-5.0); BILIRUBIN,TOTAL 0.7 mg/dL (0.0-1.0); CALCIUM 9.3 mg/dL (8.4-10.2); CREATININE, serum 0.62 mg/dL (0.52-1.25); POTASSIUM 3.9 mmol/L (3.4-5.0); TOTAL PROTEIN 7.8 gm/dL (6.4-8.2)
[2018-06-13] MEDS ORDERED: TESSALON PERLE200 MG PO (02:52)
[2018-06-13] MEDS ORDERED: ZITHROMAX500 M2 PO (02:52)
[2018-06-13 03:10] VITALS: BP 121/60; PULSE 82
== END 2018-06-13 03:19 | disposition home or self-care (01) ==
LOC: COL.ER 00:27
PROVIDERS: Emergency Medicine
DX: J40 Bronchitis, not specified as acute or chronic (principal); B34.9 Viral infection, unspecified; E11.9 Type 2 diabetes mellitus without complications; I25.10 Atherosclerotic heart disease of native coronary artery without angina pectoris; J44.9 Chronic obstructive pulmonary disease, unspecified; Z90.710 Acquired absence of both cervix and uterus; Z87.891 Personal history of nicotine dependence; Z90.49 Acquired absence of other specified parts of digestive tract; Z79.82 Long term (current) use of aspirin; Z79.51 Long term (current) use of inhaled steroids
CPT/HCPCS: J7030

== ENCOUNTER 2018-08-27 10:10 | Outpatient (RCR) | payer MEDICARE, MEDICAID ==
[~2018-08-27 10:10] MED LIST changes: +TESSALON PERLE200 MG PO; +ZITHROMAX500 M2 PO
== END 2018-09-24 09:51 | disposition home or self-care (01) ==
LOC: WSPT 10:10
DX: M54.2 Cervicalgia (principal); M54.9 Dorsalgia, unspecified; G89.29 Other chronic pain

== ENCOUNTER 2018-11-16 10:30 | Outpatient (RCR) | payer MEDICARE, MEDICAID ==
[2018-12-23] MEDS ORDERED: PERCOCET 325 MG1 TA2 PO (14:16)
[2018-12-23] MEDS ORDERED: FLEXERIL5 MG PO (14:16)
== END 2019-01-17 ==
LOC: WSC
DX: G89.29 Other chronic pain (principal); M25.511 Pain in right shoulder; M25.512 Pain in left shoulder; M54.2 Cervicalgia

== ENCOUNTER 2018-12-23 09:31 | Emergency (ER) | payer MEDICARE, MEDICAID ==
[~2018-12-23] VITALS: Ht 154.9 cm; Wt 100.0 kg
[2018-12-23 10:29] LABS: COLLECTION METHOD CLEAN CATCH
[2018-12-23 10:35] LABS: BASO % 0.4 % (0.0-2.0); EOS # 0.2 (0.0-0.7); GRAN # 4.5 (1.4-6.5); GRAN % 59.1 % (42.2-75.2); HEMATOCRIT 41.1 % (37.0-47.0); HEMOGLOBIN 13.4 g/dl (12.5-16.0); LYMPH # 2.3 (1.2-3.4); LYMPH % 30.3 % (20.0-51.0); MEAN CELL VOLUME 90 fl (80.0-100.0); MEAN CORPUSCULAR HEMOGLOBIN 29 pg (27.0-31.0); MEAN CORPUSCULAR HGB CONC 33 g/dl (33.0-37.0); MEAN PLATELET VOLUME 9.4 fl (7.4-10.4); MONO # 0.5 (0.1-0.6); MONO % 6.8 % (1.7-9.3); PLATELET COUNT 219 K/mm3 (130-400); RED BLOOD COUNT 4.57 M/mm3 (4.10-5.30); REDCELL DISTRIBUTION WIDTH-CV 13.5 % (11.5-14.5)
[2018-12-23 10:52] LABS: MUCOUS Present /lpf; PH 6 (5-8); SQUAMOUS EPITHELIAL 0-2 /hpf; URINE APPEARANCE Hazy; URINE BACTERIA None Seen /hpf; URINE BILIRUBIN Negative (NEGATIVE); URINE BLOOD 1+ (NEGATIVE); URINE COLOR Yellow; URINE GLUCOSE Negative (NEGATIVE); URINE KETONE Negative (NEGATIVE); URINE LEUKOCYTE ESTERASE Negative (NEGATIVE); URINE NITRATE Negative (NEGATIVE); URINE PROTEIN(semi-quant) Negative (NEGATIVE); URINE UROBILINOGEN Negative (NEGATIVE)
[2018-12-23 10:59] LABS: TROPONIN-I < 0.012 ng/mL (0.000-0.035)
[2018-12-23 11:41] LABS: ALBUMIN 4.5 gm/dL (3.5-5.0); CALCIUM 9.7 mg/dL (8.4-10.2); CREATININE, serum 0.54 (0.52-1.25); POTASSIUM 4.6 mmol/L (3.4-5.0); TOTAL PROTEIN 7.9 gm/dL (6.4-8.2)
[2018-12-23] MEDS ORDERED: FLEXERIL5 MG PO (14:16)
[2018-12-23] MEDS ORDERED: PERCOCET 325 MG1 TA2 PO (14:16)
[2018-12-23 14:22] VITALS: BP 122/82; PULSE 60; TEMP 98.2
== END 2018-12-23 14:36 | disposition home or self-care (01) ==
LOC: COL.ER 09:31
PROVIDERS: Emergency Medicine
DX: R10.9 Unspecified abdominal pain (principal); I10 Essential (primary) hypertension; I25.2 Old myocardial infarction; J44.9 Chronic obstructive pulmonary disease, unspecified; Z90.49 Acquired absence of other specified parts of digestive tract; Z90.89 Acquired absence of other organs; Z90.710 Acquired absence of both cervix and uterus; Z79.51 Long term (current) use of inhaled steroids
CPT/HCPCS: J3010; J7030; Q9967

== ENCOUNTER 2018-12-28 17:58 | Emergency (ER) | payer MEDICARE, MEDICAID ==
[~2018-12-28] VITALS: Ht 154.9 cm; Wt 100.0 kg
[~2018-12-28 17:58] MED LIST changes: +FLEXERIL5 MG PO
[2018-12-28 18:03] VITALS: TEMP 97.7
[2018-12-28 19:20] VITALS: BP 137/71; PULSE 78
== END 2018-12-28 19:20 | disposition home or self-care (01) ==
LOC: COL.ER 17:58
DX: S60.221A Contusion of right hand, initial encounter (principal); I10 Essential (primary) hypertension; Z79.82 Long term (current) use of aspirin; X58.XXXA Exposure to other specified factors, initial encounter

== ENCOUNTER 2019-01-25 08:12 | Observation (INO) | payer MEDICARE, MEDICAID ==
[~2019-01-25] VITALS: Ht 152.4 cm; Wt 102.7 kg
[2019-01-25 08:54] LABS: BASO % 0.3 % (0.0-2.0); EOS # 0.2 (0.0-0.7); EOS % 2.6 % (0-4.0); GRAN # 5.2 (1.4-6.5); GRAN % 67.3 % (42.2-75.2); HEMATOCRIT 38.8 % (37.0-47.0); HEMOGLOBIN 12.6 g/dl (12.5-16.0); LYMPH # 1.8 (1.2-3.4); LYMPH % 23.8 % (20.0-51.0); MEAN CELL VOLUME 92 fl (80.0-100.0); MEAN CORPUSCULAR HEMOGLOBIN 30 pg (27.0-31.0); MEAN CORPUSCULAR HGB CONC 33 g/dl (33.0-37.0); MONO # 0.4 (0.1-0.6); MONO % 5.7 % (1.7-9.3); PLATELET COUNT 188 K/mm3 (130-400); RED BLOOD COUNT 4.23 M/mm3 (4.10-5.30); REDCELL DISTRIBUTION WIDTH-CV 13.7 % (11.5-14.5)
[2019-01-25 09:00] LABS: PROTHROMBIN TIME 11.3 SECONDS (9.7-12.8)
[2019-01-25 09:12] LABS: ALANINE AMINOTRANSFERASE 57 U/L (9-52); ALKALINE PHOSPHATASE 77 U/L (50-136); ANION GAP 9 mmol/L (7-16); AST,SGOT 53 U/L (15-37); BLOOD UREA NITROGEN 12 mg/dL (7-17); CARBON DIOXIDE 28 mmol/L (22-30); CHLORIDE 106 mmol/L (98-107); CREATININE, serum 0.62 (0.52-1.25); GLUCOSE 99 mg/dL (74-106); LIPASE 71 U/L (23-300); POTASSIUM 4.3 mmol/L (3.4-5.0); SODIUM 142 mmol/L (137-145); TOTAL PROTEIN 7.1 gm/dL (6.4-8.2)
[2019-01-25 09:15] LABS: D-DIMER < 200.00 ng/mLDDu (200-230)
[2019-01-25 09:31] LABS: TROPONIN-I < 0.012 ng/mL (0.000-0.035)
[2019-01-25 15:13] VITALS: BP 131/62; PULSE 77; TEMP 97.9
[2019-01-25 16:00] VITALS: BP 142/57; PULSE 75; TEMP 97.6
[2019-01-25] MEDS ORDERED: ABILIFY5 MG PO (16:48)
[2019-01-25] MEDS ORDERED: CALCIUM CARBON650 M2 PO (17:04)
[2019-01-25] MEDS ORDERED: GLUCOSAMINE & C1 CA2 PO (17:18)
[2019-01-25] MEDS ORDERED: B COMPLEX #11 TAB PO (17:19)
[2019-01-25] MEDS ORDERED: REQUIP0.25 MG PO (17:20)
[2019-01-25] MEDS ORDERED: PHENERGAN 25 TA25 MG PO (17:21)
--- NOTE | 2019-01-25 19:02 | NUR ---
Patient remains pain free. Has been talking on phone a lot and visiting with daughter. Only concerns are snacks for later tonight. Call light and personal items are within reach.
--- NOTE | 2019-01-25 19:30 | NUR ---
Initial shift assessment done- states is having some chest pain, when questioned more-states it has been going on for about 45minutes, points to epigastric region and of to the right- pt in no distress- sitting in chair eating a large supper- continues to eat while she is telling me about the pain-- Tele on, VSS, pt agrees it could be acid related- wants some saltine cracker and that usually helps she states-
[2019-01-25 19:33] VITALS: BP 123/65; PULSE 83; TEMP 98.9
[2019-01-25 23:48] VITALS: BP 138/54; PULSE 74; TEMP 98.7
[2019-01-26] VITALS (9 sets, daily range): BP systolic 91–152; BP diastolic 55–67; PULSE 69–108; TEMP 97.4–98.9
[2019-01-26 07:10] LABS: BASO % 0.4 % (0.0-2.0); EOS # 0.2 (0.0-0.7); EOS % 2.1 % (0-4.0); GRAN # 4.8 (1.4-6.5); GRAN % 59.8 % (42.2-75.2); HEMATOCRIT 41.1 % (37.0-47.0); HEMOGLOBIN 13.4 g/dl (12.5-16.0); LYMPH # 2.5 (1.2-3.4); LYMPH % 31.4 % (20.0-51.0); MEAN CELL VOLUME 92 fl (80.0-100.0); MEAN CORPUSCULAR HEMOGLOBIN 30 pg (27.0-31.0); MEAN CORPUSCULAR HGB CONC 33 g/dl (33.0-37.0); MEAN PLATELET VOLUME 9.5 fl (7.4-10.4); MONO # 0.5 (0.1-0.6); MONO % 6.1 % (1.7-9.3); PLATELET COUNT 213 K/mm3 (130-400); RED BLOOD COUNT 4.48 M/mm3 (4.10-5.30); REDCELL DISTRIBUTION WIDTH-CV 13.4 % (11.5-14.5)
[2019-01-26 07:20] LABS: ALBUMIN 4.4 gm/dL (3.5-5.0); BILIRUBIN,TOTAL 1.1 mg/dL (0.0-1.0); CALCIUM 9.1 mg/dL (8.4-10.2); CHOLESTEROL RISK RATIO 3.1; CREATININE, serum 0.59 (0.52-1.25); POTASSIUM 4.1 mmol/L (3.4-5.0); TOTAL PROTEIN 7.7 gm/dL (6.4-8.2)
--- NOTE | 2019-01-26 07:39 | NUR ---
PT BEING TAKEN DOWN FOR JIE SCAN.
--- NOTE | 2019-01-26 08:10 | NUR ---
PT RETURNED VIA WHEELCHAIR FROM [facility].
--- NOTE | 2019-01-26 09:15 | NUR ---
Initial visit; Patient thanked Stone Gluer for looking in on her, listening and keeping her and her friend Emily in her prayers. Stone Gluer wished Cesilia well and offered God's blessings.
--- NOTE | 2019-01-26 10:14 | NUR ---
PT STILL DOWN HAVING LEXISCAN AT THIS TIME
--- NOTE | 2019-01-26 13:57 | NUR ---
DISCHARGE INSTRUCTIONS REVIEWED WITH PATIENT AND DAUGHTER. IV DISCONTINUED. PT'S BELONGINGS GATHERED BY DAUGHTER. PT TRANSPORTED VIA WHEELCHAIR TO EXIT WITH DAUGHTER BY SERVANDO CRAIG.
== END 2019-01-26 14:00 | disposition home or self-care (01) ==
LOC: COL.ER 08:12 → MEDICAL 09:49
PROVIDERS: Emergency Medicine; Physician Assistant; ADMIT Internal Medicine
DX: R07.9 Chest pain, unspecified (principal); K76.0 Fatty (change of) liver, not elsewhere classified; J44.9 Chronic obstructive pulmonary disease, unspecified; F32.9 Major depressive disorder, single episode, unspecified; K21.9 Gastro-esophageal reflux disease without esophagitis; E11.43 Type 2 diabetes mellitus with diabetic autonomic (poly)neuropathy; K31.84 Gastroparesis; Z86.73 Personal history of transient ischemic attack (TIA), and cerebral infarction without residual deficits; G47.33 Obstructive sleep apnea (adult) (pediatric); Z79.82 Long term (current) use of aspirin; D35.01 Benign neoplasm of right adrenal gland; G31.84 Mild cognitive impairment of uncertain or unknown etiology; Z90.710 Acquired absence of both cervix and uterus; Z90.49 Acquired absence of other specified parts of digestive tract; Z79.51 Long term (current) use of inhaled steroids; Z87.891 Personal history of nicotine dependence; Z80.51 Family history of malignant neoplasm of kidney; Z80.0 Family history of malignant neoplasm of digestive organs; Z88.5 Allergy status to narcotic agent; Z88.2 Allergy status to sulfonamides; Z88.1 Allergy status to other antibiotic agents; Z88.6 Allergy status to analgesic agent
CPT/HCPCS: A9500; C9113; G0378; J1650; J2785; J3010; J7030

== ENCOUNTER → 2019-05-12 | Outpatient (CLI) | payer MEDICARE, MEDICAID ==
[~2019-05-12] MED LIST changes: +ABILIFY5 MG PO; +ANUSOL-HC2.5% RC; +B COMPLEX #11 TAB PO; +FLONASEALLERGY NS; +FLOVENT 110MCG7.9 GM IH; +GLUCOSAMINE & C1 CA2 PO; +NATURE'S BLE1000 MCG PO; +PATANOL OPHTHALM5 ML OD; +PROBIOTIC ACID1 EAC3 PO; +PROVENTIL0.09 MG/A1 IH; +REQUIP0.25 MG PO; +VITAMINC1000TA PO
== END ==
LOC: MHCPAIN 09:23
DX: M47.817 Spondylosis without myelopathy or radiculopathy, lumbosacral region (principal); M54.16 Radiculopathy, lumbar region
CPT/HCPCS: G0463

== ENCOUNTER → 2019-06-02 | Outpatient (CLI) | payer MEDICARE, MEDICAID ==
[~2019-06-02] VITALS: Ht 154.9 cm; Wt 101.4 kg
[2019-06-02 10:27] VITALS: BP 134/66; PULSE 77
[2019-06-28 11:49] VITALS: BP 150/80; PULSE 61
== END ==
LOC: LIGHT 09:51
DX: Z68.41 Body mass index [BMI] 40.0-44.9, adult (principal); K76.0 Fatty (change of) liver, not elsewhere classified; N39.3 Stress incontinence (female) (male); G47.00 Insomnia, unspecified
CPT/HCPCS: G0463

== ENCOUNTER → 2019-06-24 | Outpatient (CLI) | payer MEDICARE, MEDICAID | LOC: LIGHT 12:57 | DX: Z02.89 Encounter for other administrative examinations (principal) ==

== ENCOUNTER → 2019-06-29 | Outpatient (CLI) | payer MEDICARE, MEDICAID | LOC: LIGHT 11:31 | DX: Z68.41 Body mass index [BMI] 40.0-44.9, adult (principal); K76.0 Fatty (change of) liver, not elsewhere classified; G47.20 Circadian rhythm sleep disorder, unspecified type; N39.3 Stress incontinence (female) (male) | CPT/HCPCS: G0463 ==

== ENCOUNTER 2019-07-01 14:15 | Outpatient (RCR) | payer MEDICARE, MEDICAID | END 2019-07-27 | disposition home or self-care (01) | LOC: WSPT | DX: M48.062 Spinal stenosis, lumbar region with neurogenic claudication (principal); M43.16 Spondylolisthesis, lumbar region; M48.02 Spinal stenosis, cervical region ==

== ENCOUNTER → 2019-09-28 | Outpatient (CLI) | payer MEDICARE, MEDICAID ==
[~2019-09-28] VITALS: Ht 154.9 cm; Wt 103.9 kg
[2019-09-28 16:08] VITALS: BP 120/60; PULSE 86
== END ==
LOC: LIGHT 13:11
DX: E66.01 Morbid (severe) obesity due to excess calories (principal); Z68.41 Body mass index [BMI] 40.0-44.9, adult
CPT/HCPCS: G0463

== ENCOUNTER → 2019-09-29 | Outpatient (CLI) | payer MEDICARE, MEDICAID | LOC: MHCPAIN 10:08 | DX: M47.817 Spondylosis without myelopathy or radiculopathy, lumbosacral region (principal); M54.5 Low back pain; M53.3 Sacrococcygeal disorders, not elsewhere classified; M54.16 Radiculopathy, lumbar region; G89.29 Other chronic pain | CPT/HCPCS: G0463 ==

== ENCOUNTER → 2019-11-24 | Outpatient (CLI) | payer MEDICARE, MEDICAID ==
[~2019-11-24] MED LIST changes: +BLINK GEL TEARS10 ML OU; +TOBRADEX EYE DRO5 ML OS
== END ==
LOC: COL.PUL 11-17 10:00
DX: R06.02 Shortness of breath (principal)
CPT/HCPCS: J7674

== ENCOUNTER → 2020-01-19 | Outpatient (CLI) | payer MEDICARE, MEDICAID ==
[~2020-01-19] MED LIST changes: +CLEOCIN HCL300 MG PO; +OMEGA-3 1000 MG1 CAP PO
== END ==
LOC: COL.CAR 08:00
DX: Z53.8 Procedure and treatment not carried out for other reasons (principal)

== ENCOUNTER 2020-02-04 08:36 | Outpatient (CLI) | payer MEDICARE, MEDICAID ==
[~2020-02-04] VITALS: Ht 154.9 cm; Wt 103.9 kg
[~2020-02-04 08:36] MED LIST changes: -CLEOCIN HCL300 MG PO; -OMEGA-3 1000 MG1 CAP PO
[2020-02-04] MEDS ORDERED: OMEGA-3 1000 MG1 CAP PO (09:41)
[2020-02-04] MEDS ORDERED: NATURE'S BLE1000 MCG PO (09:42)
[2020-02-04 09:51] VITALS: BP 124/90; PULSE 60; TEMP 97.6
[2020-02-04] MEDS ORDERED: CLEOCIN HCL300 MG PO (10:27)
[2020-02-04 11:01] VITALS: BP 130/50; PULSE 71
--- NOTE | 2020-02-04 11:10 | NUR ---
dI==Discharge instructions given to pt.Pt verbalizes understanding.
--- NOTE | 2020-02-04 11:28 | NUR ---
Pt escorted out via wheelchair by this nurse.
== END 2020-02-04 11:36 | disposition home or self-care (01) ==
LOC: COL.CAR 08:36
DX: I48.0 Paroxysmal atrial fibrillation (principal); J44.9 Chronic obstructive pulmonary disease, unspecified; G47.33 Obstructive sleep apnea (adult) (pediatric); K75.4 Autoimmune hepatitis; Z20.828 Contact with and (suspected) exposure to other viral communicable diseases; M79.7 Fibromyalgia

== ENCOUNTER 2020-04-20 11:00 | Outpatient (RCR) | payer MEDICARE, MEDICAID ==
[~2020-04-20 11:00] MED LIST changes: +CLEOCIN HCL300 MG PO; +OMEGA-3 1000 MG1 CAP PO
== END 2020-04-24 | disposition home or self-care (01) ==
LOC: WSPT
DX: M48.062 Spinal stenosis, lumbar region with neurogenic claudication (principal); M43.16 Spondylolisthesis, lumbar region; M48.02 Spinal stenosis, cervical region; M54.12 Radiculopathy, cervical region

== ENCOUNTER 2020-05-09 11:00 | Outpatient (RCR) | payer MEDICARE, MEDICAID | END 2020-05-11 09:03 | disposition home or self-care (01) | LOC: WSPT 11:00 | DX: M54.5 Low back pain (principal); M54.2 Cervicalgia; M25.551 Pain in right hip; M25.552 Pain in left hip ==

== ENCOUNTER 2020-08-30 17:57 | Observation (INO) | payer MEDICARE, MEDICAID ==
[~2020-08-30] VITALS: Ht 155 cm; Wt 106.3 kg
[2020-08-30 18:47] LABS: BASO % 0.3 % (0.0-2.0); EOS # 0.1 (0.0-0.7); EOS % 1.3 % (0-4.0); GRAN # 6.8 (1.4-6.5); GRAN % 66.3 % (42.2-75.2); HEMATOCRIT 39.9 % (37.0-47.0); HEMOGLOBIN 13.1 g/dl (12.5-16.0); LYMPH # 2.6 (1.2-3.4); MEAN CELL VOLUME 94 fl (80.0-100.0); MEAN CORPUSCULAR HEMOGLOBIN 31 pg (27.0-31.0); MEAN CORPUSCULAR HGB CONC 33 g/dl (33.0-37.0); MEAN PLATELET VOLUME 8.8 fl (7.4-10.4); MONO # 0.6 (0.1-0.6); MONO % 5.7 % (1.7-9.3); PLATELET COUNT 219 K/mm3 (130-400); RED BLOOD COUNT 4.26 M/mm3 (4.10-5.30); REDCELL DISTRIBUTION WIDTH-CV 13.6 % (11.5-14.5)
[2020-08-30 18:56] LABS: ALANINE AMINOTRANSFERASE 42 U/L (4-34); ALBUMIN 4.2 gm/dL (3.5-5.0); ALKALINE PHOSPHATASE 84 U/L (50-136); ANION GAP 9 mmol/L (7-16); AST,SGOT 44 U/L (15-37); BILIRUBIN,TOTAL 0.9 mg/dL (0.0-1.0); BLOOD UREA NITROGEN 15 mg/dL (7-17); CALCIUM 9.1 mg/dL (8.4-10.2); CARBON DIOXIDE 24 mmol/L (22-30); CHLORIDE 106 mmol/L (98-107); CREATININE, serum 0.68 (0.52-1.25); GLUCOSE 94 mg/dL (74-106); POTASSIUM 4.3 mmol/L (3.4-5.0); SODIUM 139 mmol/L (137-145); TOTAL PROTEIN 7.4 gm/dL (6.4-8.2)
[2020-08-30 19:12] LABS: TROPONIN-I < 0.012 ng/mL (0.000-0.035)
[2020-08-30 20:25] LABS: COLLECTION METHOD CLEAN CATCH
[2020-08-30 20:32] LABS: MUCOUS Present /lpf; PH 5 (5-8); URINE APPEARANCE Hazy; URINE BACTERIA None Seen /hpf; URINE BILIRUBIN Negative (NEGATIVE); URINE BLOOD Negative (NEGATIVE); URINE COLOR Yellow; URINE GLUCOSE Negative (NEGATIVE); URINE KETONE Negative (NEGATIVE); URINE LEUKOCYTE ESTERASE Trace (NEGATIVE); URINE NITRATE Negative (NEGATIVE); URINE PROTEIN(semi-quant) Negative (NEGATIVE)
[2020-08-30 21:20] LABS: LIPASE 29 U/L (23-300)
[2020-08-30] MEDS ORDERED: TRELEGY ELLIPT1 EACH IH (21:26)
[2020-08-30] MEDS ORDERED: TOPROL XL 25MG25 MG PO (21:26)
[2020-08-30] MEDS ORDERED: SINGULAIR 110 MG/TAB PO (21:27)
[2020-08-30] MEDS ORDERED: ABILIFY5 MG PO (21:28)
[2020-08-30] MEDS ORDERED: CALCIUM 600 MG1 EAC2 PO (21:30)
[2020-08-30 22:16] VITALS: BP 139/53; PULSE 69; TEMP 98.5
--- NOTE | 2020-08-30 22:37 | NUR ---
Patient arrived to medical unit from ER at appoximately 2215. Alert and oriented x 4, and able to make needs known. Reports mild discomfort to abdomen, worse with movement. Peripheral INT to left wrist flushed. Site without redness, warmth, swelling, and pain. Denies having SOB and dyspnea at rest, does report SOB with exertion. LS CTA. Respirations even and unlabored. HRR. Telemetry in place. Capillary refill less than 3 seconds. Non-tenting skin turgor. BSAx4. Abdomen soft, non-tender. 1+ edema BLE. Updated that her diet order is clear liquids, and voiced understanding. Patient voices no questions, needs, or concerns at this time. Patient at radiology at this time for CT chest, abdomen, and pelvis.
[2020-08-31] VITALS (12 sets, daily range): BP systolic 112–150; BP diastolic 46–77; PULSE 64–100; TEMP 97.5–98.4
--- NOTE | 2020-08-31 01:14 | NUR ---
Patient complaining of chest pain around 0100. Given PRN Nitro per orders. Resting in bed with call light within reach. CPAP on at this time.
[2020-08-31 04:07] LABS: COLLECTION METHOD CATHETER
[2020-08-31 04:15] LABS: PH 5 (5-8); SQUAMOUS EPITHELIAL 0-2 /hpf; URINE APPEARANCE Clear; URINE BACTERIA None Seen /hpf; URINE BILIRUBIN Negative (NEGATIVE); URINE BLOOD Negative (NEGATIVE); URINE COLOR Yellow; URINE GLUCOSE Negative (NEGATIVE); URINE KETONE Negative (NEGATIVE); URINE LEUKOCYTE ESTERASE Negative (NEGATIVE); URINE NITRATE Negative (NEGATIVE); URINE PROTEIN(semi-quant) Negative (NEGATIVE); URINE RBC 0-2 /hpf; URINE UROBILINOGEN Negative (NEGATIVE)
--- NOTE | 2020-08-31 06:01 | NUR ---
Patient has no further complaints of pain or discomfort. Wearing CPAP. Voices no questions, needs, or concens at this time. Resting in bed with call light within reach.
[2020-08-31 06:15] LABS: BASO % 0.3 % (0.0-2.0); EOS # 0.1 (0.0-0.7); EOS % 1.4 % (0-4.0); GRAN # 4.5 (1.4-6.5); GRAN % 58.7 % (42.2-75.2); HEMOGLOBIN 12.2 g/dl (12.5-16.0); LYMPH # 2.6 (1.2-3.4); LYMPH % 33.9 % (20.0-51.0); MEAN CELL VOLUME 95 fl (80.0-100.0); MEAN CORPUSCULAR HEMOGLOBIN 32 pg (27.0-31.0); MEAN CORPUSCULAR HGB CONC 33 g/dl (33.0-37.0); MEAN PLATELET VOLUME 9.1 fl (7.4-10.4); MONO # 0.4 (0.1-0.6); MONO % 5.3 % (1.7-9.3); PLATELET COUNT 197 K/mm3 (130-400); RED BLOOD COUNT 3.87 M/mm3 (4.10-5.30); REDCELL DISTRIBUTION WIDTH-CV 13.7 % (11.5-14.5)
[2020-08-31 06:17] LABS: HEMATOCRIT 36.9 % (37.0-47.0)
[2020-08-31 06:26] LABS: CHOLESTEROL 166 mg/dL (120-200); CHOLESTEROL RISK RATIO 3.3; HDL CHOLESTEROL 50 mg/dL; LDL CHOLESTEROL 91 mg/dL; TRIGLYCERIDE 123 mg/dL
[2020-08-31 06:35] LABS: TROPONIN-I < 0.012 ng/mL (0.000-0.035)
--- NOTE | 2020-08-31 07:03 | NUR ---
Attempted to call cardiology consult to Dr. Swenson. Requested that the belt back operator that is concrete mixing plant laborer starting at 0800 be called. Call placed to Dr. Kruse, and updated on consult. Requested patient be NPO. Order placed.
--- NOTE | 2020-08-31 09:45 | NUR ---
Pt assessment complete. Pt laying in bed upon entry, she is A/O x4. Her breathing is even and unlabored on RA. Pt has some dyspnea with exertion. Pain is minimal to R side of chest. POC discussed with patient who verbalizes understanding.
--- NOTE | 2020-08-31 12:58 | NUR ---
First visit from the hop farmer. No needs right now.
--- NOTE | 2020-08-31 16:59 | NUR ---
Discharge instructions and paperwork reviewed with patient. All questions answered at this time. IV to LW dc'd catheter tip intact.
--- NOTE | 2020-08-31 17:30 | NUR ---
Pt wheeled out of facility at this time.
== END 2020-08-31 17:30 | disposition home or self-care (01) ==
LOC: COL.ER 17:57 → MEDICAL 20:11
PROVIDERS: Emergency Medicine; Nurse Practitioner; Nurse Practitioner Family; ADMIT Hospitalist
DX: R07.89 Other chest pain (principal); R10.9 Unspecified abdominal pain; J45.909 Unspecified asthma, uncomplicated; E66.01 Morbid (severe) obesity due to excess calories; G47.33 Obstructive sleep apnea (adult) (pediatric); K21.9 Gastro-esophageal reflux disease without esophagitis; I25.2 Old myocardial infarction; I34.9 Nonrheumatic mitral valve disorder, unspecified; K76.0 Fatty (change of) liver, not elsewhere classified; M79.7 Fibromyalgia; G25.81 Restless legs syndrome; F32.9 Major depressive disorder, single episode, unspecified; F41.9 Anxiety disorder, unspecified; Z90.89 Acquired absence of other organs; Z79.82 Long term (current) use of aspirin; Z86.73 Personal history of transient ischemic attack (TIA), and cerebral infarction without residual deficits; Z95.818 Presence of other cardiac implants and grafts; Z79.899 Other long term (current) drug therapy; Z79.52 Long term (current) use of systemic steroids; Z79.891 Long term (current) use of opiate analgesic; Z88.5 Allergy status to narcotic agent; Z88.8 Allergy status to other drugs, medicaments and biological substances; Z88.2 Allergy status to sulfonamides; Z88.1 Allergy status to other antibiotic agents; Z68.41 Body mass index [BMI] 40.0-44.9, adult
CPT/HCPCS: A9500; G0378; J2785; J7030; Q9967

== ENCOUNTER 2021-10-20 14:43 | Emergency (ER) | payer MEDICARE, MEDICAID ==
[~2021-10-20] VITALS: Ht 152.4 cm; Wt 103.2 kg
[~2021-10-20 14:43] MED LIST changes: +CALCIUM 600 MG1 EAC2 PO; -PRIL40 PO; +PRILOSEC 20MG20 MG; +TOPROL XL 25MG25 MG PO; +TRELEGY ELLIPT1 EACH IH
[2021-10-20 14:55] VITALS: TEMP 98.6
[2021-10-20 15:59] LABS: BASO % 0.2 % (0.0-2.0); EOS # 0.2 K/mm3 (0.0-0.7); EOS % 0.8 % (0.0-4.0); GRAN # 14.7 K/mm3 (1.4-6.5); GRAN % 83.2 % (42.2-75.2); HEMATOCRIT 40.4 % (37.0-47.0); HEMOGLOBIN 13.5 g/dl (12.5-16.0); LYMPH # 1.9 K/mm3 (1.2-3.4); LYMPH % 10.9 % (20.0-51.0); MEAN CELL VOLUME 94 fl (80.0-100.0); MEAN CORPUSCULAR HEMOGLOBIN 31 pg (27-31); MEAN CORPUSCULAR HGB CONC 33 g/dl (33.0-37.0); MEAN PLATELET VOLUME 8.7 fl (7.4-10.4); MONO # 0.8 K/mm3 (0.1-0.6); MONO % 4.4 % (1.7-9.3); PLATELET COUNT 252 K/mm3 (130-400); RED BLOOD COUNT 4.31 M/mm3 (4.10-5.30)
[2021-10-20 16:15] LABS: ALBUMIN 3.2 gm/dL (3.4-4.8); ANION GAP 11 mmol/L (7-16); BLOOD UREA NITROGEN 12 mg/dL (10-20); CARBON DIOXIDE 23 mmol/L (23-31); CHLORIDE 103 mmol/L (98-107); CREATININE, serum 0.75 mg/dL (0.57-1.11); GLUCOSE 145 mg/dL (70-99); SODIUM 137 mmol/L (136-145)
[2021-10-20 16:23] LABS: TROPONIN-I < 0.010 ng/mL (0.00-0.033)
[2021-10-20 16:40] LABS: PHOSPHOROUS 3.4 mg/dL (2.3-4.7)
[2021-10-20] MEDS ORDERED: ZITHROMAX 250M250 MG PO (17:09)
[2021-10-20] MEDS ORDERED: DECADRON 4MG TAB4 MG PO (17:09)
[2021-10-20 17:29] VITALS: BP 126/86; PULSE 85
== END 2021-10-20 17:29 | disposition home or self-care (01) ==
LOC: COL.ER 14:43
PROVIDERS: Emergency Medicine
DX: J20.9 Acute bronchitis, unspecified (principal); Z20.822 Contact with and (suspected) exposure to COVID-19; Z87.891 Personal history of nicotine dependence; Z88.2 Allergy status to sulfonamides
CPT/HCPCS: J8540

== ENCOUNTER 2021-10-26 13:51 | Inpatient (IN) | payer MEDICARE, MEDICAID ==
[~2021-10-26] VITALS: Ht 152.4 cm; Wt 106.4 kg
[~2021-10-26 13:51] MED LIST changes: +DECADRON 4MG TAB4 MG PO; +ZITHROMAX 250M250 MG PO
[2021-10-26 14:26] LABS: MEAN CELL VOLUME 96 fl (80.0-100.0); MEAN CORPUSCULAR HEMOGLOBIN 31 pg (27-31); MEAN CORPUSCULAR HGB CONC 33 g/dl (33.0-37.0); MEAN PLATELET VOLUME 8.7 fl (7.4-10.4); PLATELET COUNT 255 K/mm3 (130-400); RED BLOOD COUNT 4.47 M/mm3 (4.10-5.30); REDCELL DISTRIBUTION WIDTH-CV 13.1 % (11.5-14.5)
[2021-10-26 14:45] LABS: ALANINE AMINOTRANSFERASE 41 U/L (0-55); ALBUMIN 3.3 gm/dL (3.4-4.8); ALKALINE PHOSPHATASE 100 U/L (40-150); ANION GAP 13 mmol/L (7-16); AST,SGOT 38 U/L (5-34); BILIRUBIN,TOTAL 0.7 mg/dL (0.2-1.2); BLOOD UREA NITROGEN 17 mg/dL (10-20); CALCIUM 8.9 mg/dL (8.4-10.2); CARBON DIOXIDE 21 mmol/L (23-31); CHLORIDE 105 mmol/L (98-107); CREATININE, serum 0.78 mg/dL (0.57-1.11); GLUCOSE 121 mg/dL (70-99); POTASSIUM 3.8 mmol/L (3.5-4.5); SODIUM 139 mmol/L (136-145); TOTAL PROTEIN 7.2 gm/dL (6.2-8.1)
[2021-10-26 14:52] LABS: TROPONIN-I < 0.010 ng/mL (0.00-0.033)
[2021-10-26 15:19] LABS: BAND 2 % (0-10); HYPOCHROMIA 1+; LYMPHOCYTE 14 % (20.0-51.0); METAMYELOCYTE 1 % (0-0); NEUTROPHILS 80 % (42.0-75.2)
[2021-10-26 15:20] LABS: PLATELET ESTIMATE NORMAL (NORMAL)
[2021-10-26 18:16] VITALS: BP 120/58; PULSE 74; TEMP 99.6
--- NOTE | 2021-10-26 18:38 | NUR ---
Pt admit after seeing pulmonogist. States she came here because her doctor told her to. Jellico soa for 1 weeks. POC discussed. Assessment and hx complete. Med rec complete. Room orientated.
[2021-10-26 19:38] VITALS: BP 139/67; PULSE 87; TEMP 98.8
[2021-10-26] MEDS ORDERED: CYMBALTA 30MG30 MG PO (23:55)
[2021-10-26] MEDS ORDERED: MOBIC15 MG PO (23:56)
[2021-10-26] MEDS ORDERED: NYSTATIN100000 U/1 TOP (23:59)
[2021-10-26] MEDS ORDERED: CLARITIN 1010 MG/TAB PO (23:59)
[2021-10-27 00:03] VITALS: BP 143/71; PULSE 86; TEMP 97.6
[2021-10-27 05:15] VITALS: BP 148/82; PULSE 96; TEMP 98.6
[2021-10-27 07:39] LABS: BASO % 0.1 % (0.0-2.0); GRAN # 12.8 K/mm3 (1.4-6.5); GRAN % 88.9 % (42.2-75.2); HEMATOCRIT 41.6 % (37.0-47.0); HEMOGLOBIN 13.3 g/dl (12.5-16.0); LYMPH # 1.2 K/mm3 (1.2-3.4); LYMPH % 8.6 % (20.0-51.0); MEAN CELL VOLUME 96 fl (80.0-100.0); MEAN CORPUSCULAR HEMOGLOBIN 31 pg (27-31); MEAN CORPUSCULAR HGB CONC 32 g/dl (33.0-37.0); MEAN PLATELET VOLUME 9.1 fl (7.4-10.4); MONO # 0.2 K/mm3 (0.1-0.6); MONO % 1.1 % (1.7-9.3); PLATELET COUNT 246 K/mm3 (130-400); RED BLOOD COUNT 4.33 M/mm3 (4.10-5.30); REDCELL DISTRIBUTION WIDTH-CV 13.1 % (11.5-14.5)
--- NOTE | 2021-10-27 07:41 | NUR ---
THIS PATIENT HAD A SOMEWHAT BUSY NIGHT. SHE BEGAN GETTING TACHYCARDIC DURING A TRIP TO THE BATHROOM. SHE ALSO BECAUSE TO HYPERVENTILATE, AND SHE WAS DIAPHORETIC. CONTACTED KAITLYNN AGUAYO WHO ORDERED A STAT EKG. RESULTS WERE SINUS RYHTHM ON EKG. THE PATIENT STATES THAT SHE FELT OK, BUT WAS HAVING INCREASED DIFFICULTY GOING TO SLEEP. THE PATIENT HAS EXTENSIVE ALLERGIES SO BENEDRYL WAS NOT AN OPTION. THIS RN ENCOURAGED THE PATIENT TO TURN ON THE TV TO HELP WITH GOING TO BED. THE PATIENT REMAINED ON CPAP THROUGH THE NIGHT. THE PATIENT HAS HAD INCREASING O2 NEEDS, BUT ALSO HAS EXPRESSED SOME ANXIETY. NO OTHER CONCERNS AT THIS TIME. REPORT GIVEN TO MARK WU ON DAY SHIFT.
[2021-10-27 07:54] LABS: CREATININE, serum 0.69 mg/dL (0.57-1.11); MAGNESIUM 2.2 mg/dL (1.6-2.6); POTASSIUM 4.3 mmol/L (3.5-4.5)
[2021-10-27 08:02] VITALS: BP 144/57; PULSE 89; TEMP 98.2
--- NOTE | 2021-10-27 08:10 | NUR ---
PT IS REFUSING LOW CARB DIET- DAUGHTER IS BRINGING IN REGULAR DIET FOOD. DR TIDWELL NOTIFED MAY SWITCH TO REG DIET.
--- NOTE | 2021-10-27 11:34 | NUR ---
ALERT ANDOX4. DAUGHTER AT BEDSIDE, CHANGED PT DIET PER ORDER SHE WAS REFUSING TO EAT LOW CARB AND DAUGHTER WAS SUPPLYING MEALS. PULM CONSULTED. LUNG SOUNDED BETTER TODAY THAN YESTURDAY.
[2021-10-27 11:35] VITALS: BP 133/60; PULSE 85; TEMP 99.6
--- NOTE | 2021-10-27 13:26 | NUR ---
hide mill worker met with patient to complete intake and discuss discharge plan. Patient's daughter Deana( [phone]) present at bedside. Patient reports that she lives at home alone in [place]. She reports that she gets help with her ADL's from [facility]. She endorses to having [facility] in the past for PT/OT therapy. She utilizes a cane and a walker to assist with mobility. Patient reports that she doesn't utilizes oxygen at home but does use a CPAP at night that is managed through [facility]. PCP is Dr. Zamudio and she utilizes [facility] for prescription needs. Patient reports that she does not have a DPOA-HC established. Education provided. Patient is not legally and verbalized he agreement with her daughters being her decision maker. Patient is planning on returning home once medically ready. Discharge plan: Home
[2021-10-27 15:45] VITALS: BP 122/61; PULSE 99; TEMP 99.2
[2021-10-27 20:57] VITALS: BP 142/52; PULSE 96; TEMP 97.9
[2021-10-28 00:31] VITALS: BP 149/50; PULSE 97; TEMP 98.4
[2021-10-28 04:47] VITALS: BP 135/57; PULSE 75; TEMP 97.5
[2021-10-28 06:42] LABS: BASO % 0.1 % (0.0-2.0); GRAN # 17.3 K/mm3 (1.4-6.5); GRAN % 82.8 % (42.2-75.2); HEMATOCRIT 38.5 % (37.0-47.0); HEMOGLOBIN 12.5 g/dl (12.5-16.0); LYMPH # 2.6 K/mm3 (1.2-3.4); LYMPH % 12.6 % (20.0-51.0); MEAN CELL VOLUME 96 fl (80.0-100.0); MEAN CORPUSCULAR HEMOGLOBIN 31 pg (27-31); MEAN CORPUSCULAR HGB CONC 33 g/dl (33.0-37.0); MEAN PLATELET VOLUME 9.2 fl (7.4-10.4); MONO # 0.7 K/mm3 (0.1-0.6); MONO % 3.5 % (1.7-9.3); PLATELET COUNT 239 K/mm3 (130-400); RED BLOOD COUNT 4.02 M/mm3 (4.10-5.30); REDCELL DISTRIBUTION WIDTH-CV 13.6 % (11.5-14.5)
[2021-10-28 06:57] LABS: CALCIUM 8.9 mg/dL (8.4-10.2); CREATININE, serum 0.69 mg/dL (0.57-1.11); PHOSPHOROUS 3.5 mg/dL (2.3-4.7); POTASSIUM 4.3 mmol/L (3.5-4.5)
[2021-10-28 07:53] VITALS: BP 106/48; PULSE 77; TEMP 98.3
--- NOTE | 2021-10-28 08:55 | NUR ---
PT SITTING UP IN BED ON ROOM AIR. PT STATES THAT SHE IS NOT HAVING ANY SOB OR PAIN AT THIS TIME. DAUGHTER HAD QUESTIONS ABOUT CONTACT PPE. PT AND DAUGHTER WAS EDUCATED ON PURPOSE AND REASON. BOTH VOICED UNDERSTANDING. NO OTHER NEEDS/CONCERNS WERE VOICED. CALL LIGHT IS WITHIN REACH.
[2021-10-28 12:02] VITALS: BP 156/71; PULSE 78; TEMP 97.8
[2021-10-28 15:33] VITALS: BP 130/89; PULSE 104; TEMP 98.5
--- NOTE | 2021-10-28 18:19 | NUR ---
PT SITTING UP AT SIDE OF BED FINISHING DINNER ON ROOMAIR. PT STATES THAT SHE IS STILL HAVING A NONPRODUCTIVE COUGH. PT STATES NO PAIN OR SOB AT THIS TIME. PT STATES NO NEEDS OR CONCERN AT THIS TIME. CALL LIGHT IS WITHIN REACH.
--- NOTE | 2021-10-28 20:30 | NUR ---
Initial shift assessment done- sitting at side of bed- appears SOB, pursed lip breathing- when asked she did say shes feels 'a little SOB" will put on 2L/nc, at this time- sats 97% with o2 on-- did get up to bathroom with assist, back to bed, on Tele , states her cough is better after starting the new med{tessalon},
[2021-10-28 20:44] VITALS: BP 154/58; PULSE 79; TEMP 97.7
[2021-10-29 00:36] VITALS: BP 146/55; PULSE 74; TEMP 98
[2021-10-29 03:32] VITALS: BP 138/50; PULSE 72; TEMP 97.9
--- NOTE | 2021-10-29 06:03 | NUR ---
Did sleep well all night with the CPAP, awake now as X-ray tech is in room getting a portable chest x-ray,, CPAP is off now, on RA, sats 95-96%, Requesting a few crackers as a snack- denies pain.
[2021-10-29 07:03] LABS: BASO % 0.1 % (0.0-2.0); EOS % 0.1 % (0.0-4.0); GRAN # 14.4 K/mm3 (1.4-6.5); HEMATOCRIT 38.2 % (37.0-47.0); HEMOGLOBIN 12.3 g/dl (12.5-16.0); LYMPH # 2.9 K/mm3 (1.2-3.4); MEAN CELL VOLUME 98 fl (80.0-100.0); MEAN CORPUSCULAR HEMOGLOBIN 32 pg (27-31); MEAN CORPUSCULAR HGB CONC 32 g/dl (33.0-37.0); MEAN PLATELET VOLUME 8.9 fl (7.4-10.4); MONO # 0.7 K/mm3 (0.1-0.6); MONO % 3.6 % (1.7-9.3); PLATELET COUNT 219 K/mm3 (130-400); RED BLOOD COUNT 3.91 M/mm3 (4.10-5.30); REDCELL DISTRIBUTION WIDTH-CV 13.7 % (11.5-14.5)
[2021-10-29 07:22] LABS: ALBUMIN 3.1 gm/dL (3.4-4.8); CALCIUM 8.8 mg/dL (8.4-10.2); CREATININE, serum 0.73 mg/dL (0.57-1.11); MAGNESIUM 1.9 mg/dL (1.6-2.6); PHOSPHOROUS 3.3 mg/dL (2.3-4.7); POTASSIUM 3.9 mmol/L (3.5-4.5)
[2021-10-29 08:12] VITALS: BP 157/89; PULSE 99; TEMP 97.3
[2021-10-29 10:43] LABS: ARTERIAL BLD GAS O2 SATURATION 97.7 % (92-100); ARTERIAL BLD GAS TCO2 CT 21.5; ARTERIAL BLOOD GAS BASE EXCESS -1.4 (-2-2); ARTERIAL BLOOD GAS HCO3 20.6 meq/L (22-26); ARTERIAL BLOOD GAS PCO2 27.6 mmHg (35-45); ARTERIAL BLOOD GAS PO2 92.6 mmHg (80-100); ARTERIAL BLOOD GAS pH 7.49 (7.35-7.45)
--- NOTE | 2021-10-29 10:44 | NUR ---
Scheduled medications given. Shift assessment preformed. Patient currenlty on 1.5L of O2 via nasal cannula. VSS. Patient A&O. PRN tylenol given for aching back pain. Patient repositioned. Patient denies any further pain, discomfort, SOA, or further needs at this time. Call light in reach.
[2021-10-29 11:49] VITALS: BP 137/48; PULSE 77; TEMP 98.2
[2021-10-29 15:44] VITALS: BP 154/62; PULSE 90; TEMP 99.4
--- NOTE | 2021-10-29 18:00 | NUR ---
Patient has had an ok day. VSS. Patient A&O. Patient denies any further pain, discomfort, SOA, or further needs at this time. Call light in reach. Fall precautions in place.
[2021-10-29 20:45] VITALS: BP 156/89; PULSE 98; TEMP 98.6
[2021-10-30 00:04] VITALS: BP 129/63; PULSE 84; TEMP 97.8
[2021-10-30 05:01] VITALS: BP 135/67; PULSE 68; TEMP 98
[2021-10-30 06:49] LABS: BASO % 0.2 % (0.0-2.0); GRAN # 13.8 K/mm3 (1.4-6.5); GRAN % 81.2 % (42.2-75.2); HEMATOCRIT 38.6 % (37.0-47.0); HEMOGLOBIN 12.7 g/dl (12.5-16.0); LYMPH # 2.4 K/mm3 (1.2-3.4); LYMPH % 14.2 % (20.0-51.0); MEAN CELL VOLUME 96 fl (80.0-100.0); MEAN CORPUSCULAR HEMOGLOBIN 31 pg (27-31); MEAN CORPUSCULAR HGB CONC 33 g/dl (33.0-37.0); MEAN PLATELET VOLUME 8.8 fl (7.4-10.4); MONO # 0.6 K/mm3 (0.1-0.6); MONO % 3.5 % (1.7-9.3); PLATELET COUNT 231 K/mm3 (130-400); RED BLOOD COUNT 4.04 M/mm3 (4.10-5.30); REDCELL DISTRIBUTION WIDTH-CV 13.5 % (11.5-14.5)
[2021-10-30 07:05] LABS: ALBUMIN 3.1 gm/dL (3.4-4.8); CALCIUM 8.9 mg/dL (8.4-10.2); CREATININE, serum 0.7 mg/dL (0.57-1.11); MAGNESIUM 1.9 mg/dL (1.6-2.6); PHOSPHOROUS 3.6 mg/dL (2.3-4.7); POTASSIUM 4.1 mmol/L (3.5-4.5)
[2021-10-30 07:20] VITALS: BP 148/83; PULSE 104; TEMP 98.6
[2021-10-30] MEDS ORDERED: DECADRON 1MG TAB1 MG PO (08:42)
[2021-10-30] MEDS ORDERED: DOXYCYCLINE HY100 MG PO (08:43)
[2021-10-30] MEDS ORDERED: CARAFATE 1GM1 G PO (08:44)
--- NOTE | 2021-10-30 08:52 | NUR ---
Scheduled medications given. Shift assessment preformed. Patient A&O. VSS. Patient currently on RA. Dyspnea upon exertion noted. Patient denies any pain, discomfort, SOA, or further needs a this time. Call light in reach. Daughter at the bedside.
--- NOTE | 2021-10-30 11:50 | NUR ---
Patient deemed fit for discharge. IV DC'd catheter intact, no signs of phlebitis. Discharge education/instructions given. All questions answered. Patient denies any pain, dicomfort, SOA, or further needs at this time. Patient escorted from building via wheelchair, escorted by [facility] Staff. Daughter transfering home.
[2021-10-30] MEDS ORDERED: TESSALON P100 MG/CAP PO (14:28)
--- NOTE | 2021-10-30 14:37 | NUR ---
farmworker chicken farm contacted patient to discuss HH. Patient verbalized that she has had [facility] in the past and would like to be established with them again. Patient and patient's daughter verbalize that they are upset that the patient wasn't sent home with any medication for her cough. Daughter states that she had gotten katia vivar during her stay and " she's been sitting here coughing non stop so i'm upset that she didn't get sent home with anything". States they have reach out to Dr. Summers office but haven't heard anything. Informed both of them that i would reach out to the physician and ask about this. Phone call made to . The above was descibed and MD is agreeable to sending a presciption to the patient's pharmacy for reidon ryan. LENIN called the patient back to inform her that the physcian will send over a prescription.
== END 2021-10-30 11:30 | disposition home health service (06) | DRG 202 ==
LOC: COL.ER 13:51 → MEDICAL 15:32
PROVIDERS: Emergency Medicine; Internal Medicine; Internal Medicine Pulmonary Disease; Physician Assistant; ADMIT Internal Medicine
DX: J45.901 Unspecified asthma with (acute) exacerbation (principal); J18.9 Pneumonia, unspecified organism; R65.10 Systemic inflammatory response syndrome (SIRS) of non-infectious origin without acute organ dysfunction; E87.3 Alkalosis; Z68.42 Body mass index [BMI] 45.0-49.9, adult; K21.9 Gastro-esophageal reflux disease without esophagitis; E66.01 Morbid (severe) obesity due to excess calories; F32.A Depression, unspecified; F41.9 Anxiety disorder, unspecified; G25.81 Restless legs syndrome; G31.84 Mild cognitive impairment of uncertain or unknown etiology; M79.7 Fibromyalgia; K76.0 Fatty (change of) liver, not elsewhere classified; Z20.822 Contact with and (suspected) exposure to COVID-19; G47.33 Obstructive sleep apnea (adult) (pediatric); E11.9 Type 2 diabetes mellitus without complications; D72.829 Elevated white blood cell count, unspecified; T38.0X5A Adverse effect of glucocorticoids and synthetic analogues, initial encounter; R07.89 Other chest pain; B97.89 Other viral agents as the cause of diseases classified elsewhere; B97.10 Unspecified enterovirus as the cause of diseases classified elsewhere; Y92.238 Other place in hospital as the place of occurrence of the external cause; Z90.49 Acquired absence of other specified parts of digestive tract; Z90.711 Acquired absence of uterus with remaining cervical stump; Z87.01 Personal history of pneumonia (recurrent); Z85.828 Personal history of other malignant neoplasm of skin; I25.2 Old myocardial infarction; Z88.6 Allergy status to analgesic agent; Y92.89 Other specified places as the place of occurrence of the external cause; Z86.73 Personal history of transient ischemic attack (TIA), and cerebral infarction without residual deficits; Z87.891 Personal history of nicotine dependence; Z88.1 Allergy status to other antibiotic agents; Z88.5 Allergy status to narcotic agent; Z88.2 Allergy status to sulfonamides; Z88.8 Allergy status to other drugs, medicaments and biological substances; Z79.82 Long term (current) use of aspirin; Z23 Encounter for immunization
CPT/HCPCS: 99233-AI; 99239; J1650; J1815; J1940; J7030; J8540

== ENCOUNTER 2021-11-05 18:09 | Emergency (ER) | payer MEDICARE, MEDICAID ==
[~2021-11-05] VITALS: Ht 152.4 cm; Wt 103.2 kg
[~2021-11-05 18:09] MED LIST changes: +CARAFATE 1GM1 G PO; +CLARITIN 1010 MG/TAB PO; +CYMBALTA 30MG30 MG PO; +DECADRON 1MG TAB1 MG PO; +DOXYCYCLINE HY100 MG PO; +MOBIC15 MG PO; +NYSTATIN100000 U/1 TOP
[2021-11-05 18:37] VITALS: TEMP 99.8
[2021-11-05 19:17] LABS: BASO % 0.1 % (0.0-2.0); EOS % 0.1 % (0.0-4.0); GRAN # 12.2 K/mm3 (1.4-6.5); GRAN % 84.9 % (42.2-75.2); HEMATOCRIT 41.1 % (37.0-47.0); HEMOGLOBIN 13.6 g/dl (12.5-16.0); LYMPH # 1.6 K/mm3 (1.2-3.4); LYMPH % 10.9 % (20.0-51.0); MEAN CELL VOLUME 95 fl (80.0-100.0); MEAN CORPUSCULAR HEMOGLOBIN 31 pg (27-31); MEAN CORPUSCULAR HGB CONC 33 g/dl (33.0-37.0); MEAN PLATELET VOLUME 9.1 fl (7.4-10.4); MONO # 0.5 K/mm3 (0.1-0.6); MONO % 3.4 % (1.7-9.3); PLATELET COUNT 222 K/mm3 (130-400); RED BLOOD COUNT 4.33 M/mm3 (4.10-5.30); REDCELL DISTRIBUTION WIDTH-CV 13.6 % (11.5-14.5)
[2021-11-05 19:30] LABS: ALANINE AMINOTRANSFERASE 34 U/L (0-55); ALBUMIN 3.2 gm/dL (3.4-4.8); ALKALINE PHOSPHATASE 107 U/L (40-150); ANION GAP 14 mmol/L (7-16); AST,SGOT 23 U/L (5-34); BILIRUBIN,TOTAL 0.7 mg/dL (0.2-1.2); BLOOD UREA NITROGEN 22 mg/dL (10-20); CALCIUM 8.6 mg/dL (8.4-10.2); CARBON DIOXIDE 21 mmol/L (23-31); CHLORIDE 107 mmol/L (98-107); CREATININE, serum 0.73 mg/dL (0.57-1.11); GLUCOSE 166 mg/dL (70-99); POTASSIUM 4.5 mmol/L (3.5-4.5); SODIUM 142 mmol/L (136-145); TOTAL PROTEIN 6.6 gm/dL (6.2-8.1)
[2021-11-05 19:37] LABS: TROPONIN-I < 0.010 ng/mL (0.00-0.033)
[2021-11-05] MEDS ORDERED: ZITHROMAX Z PA250 MG PO (21:53)
[2021-11-05 22:16] VITALS: BP 124/66; PULSE 87
== END 2021-11-05 21:16 | disposition home or self-care (01) ==
LOC: COL.ER 18:09
PROVIDERS: Emergency Medicine
DX: R06.02 Shortness of breath (principal); D72.829 Elevated white blood cell count, unspecified; R79.1 Abnormal coagulation profile; E66.01 Morbid (severe) obesity due to excess calories; Z68.41 Body mass index [BMI] 40.0-44.9, adult; Z88.1 Allergy status to other antibiotic agents; Z87.891 Personal history of nicotine dependence; Z20.822 Contact with and (suspected) exposure to COVID-19; Z28.310 Unvaccinated for COVID-19
CPT/HCPCS: J3010; Q9967

== ENCOUNTER 2022-02-02 20:45 | Inpatient (IN) | payer MEDICARE, MEDICAID ==
[~2022-02-02] VITALS: Ht 152.4 cm; Wt 108.9 kg
[~2022-02-02 20:45] MED LIST changes: -PRILOSEC 20MG20 MG; +ZITHROMAX Z PA250 MG PO
[2022-02-02 21:08] LABS: BASO % 0.2 % (0.0-2.0); EOS % 0.2 % (0.0-4.0); GRAN # 10.9 K/mm3 (1.4-6.5); GRAN % 89.5 % (42.2-75.2); HEMATOCRIT 41.6 % (37.0-47.0); HEMOGLOBIN 13.3 g/dl (12.5-16.0); LYMPH # 1.1 K/mm3 (1.2-3.4); LYMPH % 8.9 % (20.0-51.0); MEAN CELL VOLUME 101 fl (80.0-100.0); MEAN CORPUSCULAR HEMOGLOBIN 32 pg (27-31); MEAN CORPUSCULAR HGB CONC 32 g/dl (33.0-37.0); MEAN PLATELET VOLUME 8.4 fl (7.4-10.4); MONO # 0.1 K/mm3 (0.1-0.6); MONO % 0.9 % (1.7-9.3); PLATELET COUNT 184 K/mm3 (130-400); RED BLOOD COUNT 4.12 M/mm3 (4.10-5.30); REDCELL DISTRIBUTION WIDTH-CV 13.8 % (11.5-14.5)
[2022-02-02 21:25] LABS: ALBUMIN 3.5 gm/dL (3.4-4.8); CALCIUM 8.9 mg/dL (8.4-10.2); CREATININE, serum 0.78 mg/dL (0.57-1.11); POTASSIUM 3.8 mmol/L (3.5-4.5); TOTAL PROTEIN 6.6 gm/dL (6.2-8.1)
[2022-02-02 21:33] LABS: TROPONIN-I 0.01 ng/mL (0.00-0.033)
[2022-02-02 21:44] LABS: BILIRUBIN,TOTAL 1.1 mg/dL (0.2-1.2)
[2022-02-02 22:10] LABS: COLLECTION METHOD CLEAN CATCH
[2022-02-02 22:16] LABS: MUCOUS Present (NOT PRESENT); SQUAMOUS EPITHELIAL 0-2 /hpf (0-10); URINE BACTERIA None Seen /hpf (NONE SEEN)
[2022-02-02 22:17] LABS: URINE APPEARANCE Clear (CLEAR/HAZY); URINE BLOOD Negative (NEGATIVE); URINE COLOR Yellow (YELLOW); URINE GLUCOSE Negative (NEGATIVE); URINE KETONE Negative (NEGATIVE); URINE NITRATE Negative (NEGATIVE); URINE PROTEIN(semi-quant) Negative (NEGATIVE); URINE UROBILINOGEN 0.2 (NEGATIVE)
[2022-02-03] VITALS (1030 sets, daily range): BP systolic 78–162; BP diastolic 36–79; PULSE 113–134; TEMP 98.3–100; O2SAT 57–100
[2022-02-04] VITALS (757 sets, daily range): BP systolic 99–137; BP diastolic 54–75; PULSE 103–120; TEMP 97.9–100.3; O2SAT 87–100
[2022-02-04 04:52] LABS: MEAN CELL VOLUME 99 fl (80.0-100.0); MEAN CORPUSCULAR HGB CONC 33 g/dl (33.0-37.0); MEAN PLATELET VOLUME 8.3 fl (7.4-10.4); PLATELET COUNT 136 K/mm3 (130-400); RED BLOOD COUNT 3.24 M/mm3 (4.10-5.30)
[2022-02-04 04:56] LABS: HEMATOCRIT 32.2 % (37.0-47.0); MEAN CORPUSCULAR HEMOGLOBIN 33 pg (27-31)
[2022-02-04 04:58] LABS: HEMOGLOBIN 10.6 g/dl (12.5-16.0)
[2022-02-04 05:08] LABS: CREATININE, serum 0.77 mg/dL (0.57-1.11); POTASSIUM 3.9 mmol/L (3.5-4.5)
[2022-02-04 06:20] LABS: BAND 26 % (0-10); EOSINOPHIL 1 % (0-4); LYMPHOCYTE 6 % (20.0-51.0); NEUTROPHILS 66 % (42.0-75.2); PLATELET ESTIMATE NORMAL (NORMAL)
[2022-02-04 18:19] LABS: HEMATOCRIT 38.6 % (37.0-47.0); HEMOGLOBIN 12.3 g/dl (12.5-16.0)
[2022-02-05] VITALS (7 sets, daily range): BP systolic 104–158; BP diastolic 47–92; PULSE 83–114; TEMP 97.5–98.8
[2022-02-05 05:35] LABS: HEMOGLOBIN 10.5 g/dl (12.5-16.0); MEAN CORPUSCULAR HEMOGLOBIN 33 pg (27-31); MEAN CORPUSCULAR HGB CONC 31 g/dl (33.0-37.0); MEAN PLATELET VOLUME 8.9 fl (7.4-10.4); PLATELET COUNT 135 K/mm3 (130-400); REDCELL DISTRIBUTION WIDTH-CV 13.8 % (11.5-14.5)
[2022-02-05 05:43] LABS: HEMATOCRIT 33.7 % (37.0-47.0)
[2022-02-05 05:44] LABS: MEAN CELL VOLUME 105 fl (80.0-100.0)
[2022-02-05 06:22] LABS: BAND 14 % (0-10); LYMPHOCYTE 7 % (20.0-51.0); NEUTROPHILS 78 % (42.0-75.2)
[2022-02-05 06:24] LABS: PLATELET ESTIMATE NORMAL (NORMAL)
[2022-02-05 06:27] LABS: HYPOCHROMIA 1+
[2022-02-06 04:57] VITALS: BP 92/37; PULSE 81; TEMP 98.3
[2022-02-06 05:12] LABS: BASO % 0.2 % (0.0-2.0); EOS # 0.1 K/mm3 (0.0-0.7); EOS % 1.1 % (0.0-4.0); GRAN # 7.9 K/mm3 (1.4-6.5); GRAN % 83.4 % (42.2-75.2); HEMOGLOBIN 10.5 g/dl (12.5-16.0); LYMPH # 1.1 K/mm3 (1.2-3.4); LYMPH % 11.4 % (20.0-51.0); MEAN CELL VOLUME 101 fl (80.0-100.0); MEAN CORPUSCULAR HEMOGLOBIN 33 pg (27-31); MEAN CORPUSCULAR HGB CONC 32 g/dl (33.0-37.0); MEAN PLATELET VOLUME 9.1 fl (7.4-10.4); MONO # 0.3 K/mm3 (0.1-0.6); MONO % 3.4 % (1.7-9.3); PLATELET COUNT 164 K/mm3 (130-400); RED BLOOD COUNT 3.23 M/mm3 (4.10-5.30); REDCELL DISTRIBUTION WIDTH-CV 13.3 % (11.5-14.5)
[2022-02-06 05:24] LABS: HEMATOCRIT 32.6 % (37.0-47.0)
[2022-02-06 07:33] VITALS: BP 115/62; PULSE 80; TEMP 98
[2022-02-06 11:30] VITALS: BP 130/72; PULSE 92; TEMP 98.4
[2022-02-06 15:36] VITALS: BP 142/80; PULSE 95; TEMP 98.1
[2022-02-06 20:41] VITALS: BP 147/59; PULSE 70; TEMP 99.4
[2022-02-07 00:31] VITALS: BP 98/33; PULSE 72; TEMP 98.6
[2022-02-07 04:28] VITALS: BP 132/63; PULSE 78; TEMP 98.3
[2022-02-07 07:30] LABS: HEMOGLOBIN 10.6 g/dl (12.5-16.0); MEAN CELL VOLUME 100 fl (80.0-100.0); MEAN CORPUSCULAR HEMOGLOBIN 33 pg (27-31); MEAN CORPUSCULAR HGB CONC 33 g/dl (33.0-37.0); PLATELET COUNT 161 K/mm3 (130-400); RED BLOOD COUNT 3.24 M/mm3 (4.10-5.30); REDCELL DISTRIBUTION WIDTH-CV 13.5 % (11.5-14.5)
[2022-02-07 07:31] LABS: CALCIUM 8.5 mg/dL (8.4-10.2); CREATININE, serum 0.65 mg/dL (0.57-1.11); POTASSIUM 3.2 mmol/L (3.5-4.5)
[2022-02-07 07:32] VITALS: BP 154/59; PULSE 82; TEMP 98.1
[2022-02-07 07:40] LABS: HEMATOCRIT 32.5 % (37.0-47.0)
[2022-02-07 09:07] LABS: EOSINOPHIL 1 % (0-4); LYMPHOCYTE 19 % (20.0-51.0); NEUTROPHILS 76 % (42.0-75.2); PLATELET ESTIMATE NORMAL (NORMAL)
[2022-02-07] MEDS ORDERED: CEFTIN500 MG PO (09:10)
[2022-02-07] MEDS ORDERED: PREDNISONE20 MG PO (09:11)
[2022-02-07] MEDS ORDERED: OXYGEN NASAL.CANN (09:19)
[2022-02-07 11:15] VITALS: BP 143/62; PULSE 104; TEMP 98.2
== END 2022-02-07 12:15 | disposition home health service (06) | DRG 871 ==
LOC: COL.ER 20:45 → MEDICAL 22:34 → ICU 02-03 06:14 → MEDICAL 02-04 13:01
PROVIDERS: Emergency Medicine; Physician Assistant; ADMIT Student in an Organized Health Care Education/Training Program
PROC: 06HY33Z Insertion of Infusion Device into Lower Vein, Percutaneous Approach (ICD-10-PCS; 2022-02-03)
PROC: 5A09557 Assistance with Respiratory Ventilation, Greater than 96 Consecutive Hours, Continuous Positive Airway Pressure (ICD-10-PCS; 2022-02-03)
PROC: 02HV33Z Insertion of Infusion Device into Superior Vena Cava, Percutaneous Approach (ICD-10-PCS; principal; 2022-02-04)
DX: A41.9 Sepsis, unspecified organism (principal); J18.9 Pneumonia, unspecified organism; R65.21 Severe sepsis with septic shock; J96.01 Acute respiratory failure with hypoxia; E87.20 Acidosis, unspecified; Z68.42 Body mass index [BMI] 45.0-49.9, adult; D64.9 Anemia, unspecified; J45.909 Unspecified asthma, uncomplicated; G47.33 Obstructive sleep apnea (adult) (pediatric); E66.01 Morbid (severe) obesity due to excess calories; K21.9 Gastro-esophageal reflux disease without esophagitis; F41.9 Anxiety disorder, unspecified; F32.A Depression, unspecified; E11.9 Type 2 diabetes mellitus without complications; G25.81 Restless legs syndrome; M79.7 Fibromyalgia; K76.0 Fatty (change of) liver, not elsewhere classified; I95.9 Hypotension, unspecified; B97.4 Respiratory syncytial virus as the cause of diseases classified elsewhere; G31.84 Mild cognitive impairment of uncertain or unknown etiology; Z88.6 Allergy status to analgesic agent; Z88.1 Allergy status to other antibiotic agents; Z88.5 Allergy status to narcotic agent; Z88.2 Allergy status to sulfonamides; Z88.8 Allergy status to other drugs, medicaments and biological substances; Z85.828 Personal history of other malignant neoplasm of skin; Z86.73 Personal history of transient ischemic attack (TIA), and cerebral infarction without residual deficits; Z90.49 Acquired absence of other specified parts of digestive tract; Z79.82 Long term (current) use of aspirin; Z23 Encounter for immunization
CPT/HCPCS: C1751; C1892; J0456; J0696; J1650; J1815; J1885; J1956; J2405; J2543; J3370; J7050; J7060; J7120; J7512; Q9967

== ENCOUNTER 2022-07-17 18:41 | Emergency (ER) | payer MEDICARE, MEDICAID ==
[~2022-07-17] VITALS: Ht 152.4 cm; Wt 101.8 kg
[~2022-07-17 18:41] MED LIST changes: +CEFTIN500 MG PO; +CHEST CONGESTI473 ML PO; +OXYGEN NASAL.CANN
[2022-07-17 18:43] VITALS: TEMP 98
[2022-07-17 20:08] VITALS: BP 179/79; PULSE 81
== END 2022-07-17 20:08 | disposition home or self-care (01) ==
LOC: COL.ER 18:41
DX: S90.32XA Contusion of left foot, initial encounter (principal); E66.9 Obesity, unspecified; W18.30XA Fall on same level, unspecified, initial encounter; W20.8XXA Other cause of strike by thrown, projected or falling object, initial encounter

== ENCOUNTER 2022-08-09 20:23 | Emergency (ER) | payer MEDICARE, MEDICAID ==
[~2022-08-09] VITALS: Ht 165.1 cm; Wt 101.8 kg
[2022-08-09 20:25] VITALS: TEMP 98.3
[2022-08-09 21:00] LABS: BASO % 0.2 % (0.0-2.0); EOS % 0.1 % (0.0-4.0); GRAN # 8.5 K/mm3 (1.4-6.5); GRAN % 88.9 % (42.2-75.2); HEMATOCRIT 40.5 % (37.0-47.0); HEMOGLOBIN 13.2 g/dl (12.5-16.0); LYMPH # 0.8 K/mm3 (1.2-3.4); LYMPH % 8.4 % (20.0-51.0); MEAN CELL VOLUME 101 fl (80.0-100.0); MEAN CORPUSCULAR HEMOGLOBIN 33 pg (27-31); MEAN CORPUSCULAR HGB CONC 33 g/dl (33.0-37.0); MEAN PLATELET VOLUME 8.6 fl (7.4-10.4); MONO # 0.2 K/mm3 (0.1-0.6); PLATELET COUNT 209 K/mm3 (130-400); RED BLOOD COUNT 4.01 M/mm3 (4.10-5.30); REDCELL DISTRIBUTION WIDTH-CV 15.6 % (11.5-14.5)
[2022-08-09 21:09] LABS: COLLECTION METHOD CLEAN CATCH
[2022-08-09 21:29] LABS: ALBUMIN 3.7 gm/dL (3.4-4.8); BILIRUBIN,TOTAL 0.7 mg/dL (0.2-1.2); CALCIUM 9.5 mg/dL (8.4-10.2); CREATININE, serum 0.9 mg/dL (0.57-1.11); POTASSIUM 4.6 mmol/L (3.5-4.5); TOTAL PROTEIN 7.3 gm/dL (6.2-8.1)
[2022-08-09 21:34] LABS: MUCOUS Present (NOT PRESENT); SQUAMOUS EPITHELIAL 0-2 /hpf (0-10); URINE APPEARANCE Cloudy (CLEAR/HAZY); URINE BACTERIA None Seen /hpf (NONE SEEN); URINE BLOOD TRACE-INTACT (NEGATIVE); URINE CALCIUM OXALATE CRYSTAL Present (NOT PRESENT); URINE COLOR Yellow (YELLOW); URINE GLUCOSE Negative (NEGATIVE); URINE KETONE Negative (NEGATIVE); URINE NITRATE Negative (NEGATIVE); URINE PROTEIN(semi-quant) 1+ (NEGATIVE); URINE UROBILINOGEN 0.2 (NEGATIVE)
[2022-08-09] MEDS ORDERED: ULTRAM 50MG TAB50 MG PO ×2 (22:45)
[2022-08-09 23:10] VITALS: BP 144/80; PULSE 80
== END 2022-08-09 23:10 | disposition home or self-care (01) ==
LOC: COL.ER 20:23
PROVIDERS: Emergency Medicine
DX: K57.32 Diverticulitis of large intestine without perforation or abscess without bleeding (principal); R74.02 Elevation of levels of lactic acid dehydrogenase [LDH]; R74.01 Elevation of levels of liver transaminase levels; E66.9 Obesity, unspecified; Z68.37 Body mass index [BMI] 37.0-37.9, adult
CPT/HCPCS: J3010; J7120; Q9967

== ENCOUNTER → 2022-09-17 | Outpatient (CLI) | payer MEDICARE, MEDICAID | LOC: COL.VAS 06:37 | DX: R60.0 Localized edema (principal); M79.605 Pain in left leg; M79.606 Pain in leg, unspecified; M79.89 Other specified soft tissue disorders ==

== ENCOUNTER 2023-01-23 17:50 | Observation (INO) | payer MEDICARE ==
[~2023-01-23] VITALS: Ht 152.4 cm; Wt 112.8 kg
[2023-01-23 19:19] LABS: BASO % 0.2 % (0.0-2.0); EOS # 0.3 K/mm3 (0.0-0.7); EOS % 2.9 % (0.0-4.0); GRAN # 5.3 K/mm3 (1.4-6.5); GRAN % 61.3 % (42.2-75.2); HEMATOCRIT 39.5 % (37.0-47.0); HEMOGLOBIN 12.8 g/dl (12.5-16.0); LYMPH # 2.5 K/mm3 (1.2-3.4); LYMPH % 28.6 % (20.0-51.0); MEAN CELL VOLUME 99 fl (80.0-100.0); MEAN CORPUSCULAR HEMOGLOBIN 32 pg (27-31); MEAN CORPUSCULAR HGB CONC 32 g/dl (33.0-37.0); MEAN PLATELET VOLUME 8.7 fl (7.4-10.4); MONO # 0.6 K/mm3 (0.1-0.6); MONO % 6.4 % (1.7-9.3); PLATELET COUNT 229 K/mm3 (130-400); REDCELL DISTRIBUTION WIDTH-CV 13.8 % (11.5-14.5)
[2023-01-23 19:36] LABS: ALANINE AMINOTRANSFERASE 43 U/L (0-55); ALBUMIN 3.6 gm/dL (3.4-4.8); ALKALINE PHOSPHATASE 112 U/L (40-150); ANION GAP 13 mmol/L (7-16); AST,SGOT 60 U/L (5-34); BLOOD UREA NITROGEN 11 mg/dL (10-20); CALCIUM 8.9 mg/dL (8.4-10.2); CARBON DIOXIDE 21 mmol/L (23-31); CHLORIDE 107 mmol/L (98-107); CREATININE, serum 0.82 mg/dL (0.57-1.11); GLUCOSE 102 mg/dL (70-99); POTASSIUM 4.4 mmol/L (3.5-4.5); SODIUM 141 mmol/L (136-145); TOTAL PROTEIN 6.9 gm/dL (6.2-8.1)
[2023-01-23 19:43] LABS: TROPONIN-I < 0.010 ng/mL (0.00-0.033)
[2023-01-23 21:00] VITALS: BP_SYST 126
[2023-01-23 22:12] VITALS: BP 102/75; PULSE 83; TEMP 98.1
--- NOTE | 2023-01-23 22:15 | NUR ---
Patient arrived on the unit at this time with her belongings including her phone, clothes, glasses, and dentures. Denies any pain at this time. Assessment and med rec complete. Allergies updated and pharmacy reviewed. Edema noted to lower extremities. A few skin tares on bilateral arms covered with gauze and tagaderm. Denies any other needs. Patient oriented to room, call light, phone, and bathroom. Call light and personal items in reach. Bed in low position and non-slip footwear in place.
[2023-01-23 22:19] LABS: COLLECTION METHOD CLEAN CATCH
[2023-01-23 22:46] LABS: URINE APPEARANCE Hazy (CLEAR/HAZY); URINE COLOR Yellow (YELLOW)
[2023-01-23 22:47] LABS: URINE BLOOD Negative (NEGATIVE); URINE GLUCOSE Negative (NEGATIVE); URINE KETONE Negative (NEGATIVE); URINE NITRATE Negative (NEGATIVE); URINE PROTEIN(semi-quant) Negative (NEGATIVE); URINE RBC 0-2 /hpf (0-2); URINE UROBILINOGEN 0.2 E.U/dL (0.2-1.0)
[2023-01-23 22:48] LABS: URINE BACTERIA Rare /hpf (NONE SEEN)
[2023-01-23 23:26] VITALS: BP 126/60; PULSE 84; TEMP 98.3
[2023-01-24] VITALS (13 sets, daily range): BP systolic 104–173; BP diastolic 43–88; PULSE 77–97; TEMP 98–99.6
[2023-01-24] MEDS ORDERED: LIPITOR20 MG PO (00:11)
[2023-01-24] MEDS ORDERED: TOPROL XL 50MG50 MG PO (00:12)
[2023-01-24 01:14] LABS: C-REACTIVE PROTEIN 1.02 mg/dL (0.00-0.50); PHOSPHOROUS 4.1 mg/dL (2.3-4.7)
[2023-01-24 01:34] LABS: THYROID STIMULATING HORMONE 1.872 uIU/mL (0.350-4.940)
[2023-01-24 05:40] LABS: HEMATOCRIT 41.3 % (37.0-47.0); HEMOGLOBIN 13.6 g/dl (12.5-16.0); MEAN CELL VOLUME 97 fl (80.0-100.0); MEAN CORPUSCULAR HEMOGLOBIN 32 pg (27-31); MEAN CORPUSCULAR HGB CONC 33 g/dl (33.0-37.0); PLATELET COUNT 244 K/mm3 (130-400); RED BLOOD COUNT 4.26 M/mm3 (4.10-5.30); REDCELL DISTRIBUTION WIDTH-CV 13.6 % (11.5-14.5)
--- NOTE | 2023-01-24 06:00 | NUR ---
Patient resting in bed. States she has some back pain, warm blanket applied. Denies any other pain. Call light and personal items in reach. Bed in low position and bed alarm on.
[2023-01-24 06:08] LABS: CALCIUM 9.4 mg/dL (8.4-10.2); CHOLESTEROL RISK RATIO 2.7; CREATININE, serum 0.84 mg/dL (0.57-1.11); POTASSIUM 4.3 mmol/L (3.5-4.5)
[2023-01-24 06:41] LABS: BAND 1 % (0-10); LYMPHOCYTE 5 % (20.0-51.0); MYELOCYTE 1 % (0-0); NEUTROPHILS 93 % (42.0-75.2); PLATELET ESTIMATE NORMAL (NORMAL)
[2023-01-24 06:43] LABS: STOMATOCYTE 1+
--- NOTE | 2023-01-24 08:00 | NUR ---
PATIENT RESTING IN BED, MORNING MEDICATIONS GIVEN, SHIFT ASSESSMENT COMPLETED. PT REPORTS SOME SHORTNESS OF BREATH. CALL LIGHT WITHIN REACH. BED ALARMS IN PLACE. WILL CONTINUE TO MONITOR.
[2023-01-24] MEDS ORDERED: ZITHROMAX 250M250 MG PO (08:55)
[2023-01-24] MEDS ORDERED: MAG-OX 400400 MG/TAB PO (08:58)
[2023-01-24] MEDS ORDERED: VOLTAREN 75 DR75 MG PO (09:02)
--- NOTE | 2023-01-24 10:24 | NUR ---
Several visit attempts; Tests and nurses present. Demo Specialist left card offering Spiritual Care with God's blessings.
[2023-01-24 11:20] LABS: ARTERIAL BLD GAS O2 SATURATION 95.9 % (92-100); ARTERIAL BLD GAS TCO2 CT 21.7; ARTERIAL BLOOD GAS BASE EXCESS -1.8 (-2-2); ARTERIAL BLOOD GAS HCO3 20.8 meq/L (22-26); ARTERIAL BLOOD GAS PCO2 30.4 mmHg (35-45); ARTERIAL BLOOD GAS PO2 73.7 mmHg (80-100); ARTERIAL BLOOD GAS pH 7.45 (7.35-7.45)
--- NOTE | 2023-01-24 16:45 | NUR ---
Concrete Vibrator Operator met with patient to discuss discharge planning. Patient lives alone in [place], but advised her daughter, Deana (ph#[phone]) lives nearby. Patient sees Dr. Zamudio for primary care and obtains medications from [facility]. Patient has her medications delivered to her home. Patient uses a CPAP and cane at home. Patient reports needing assistance with ADLS, which was provided by [facility] until she lost her Medicaid due to not completing her review. Patient has reapplied earlier in the week. Patient stated for now her daughter, granddaughter Kelly, and friends are helping her at home. Patient is interested in applying for Financial Assistance through the hospital so LENIN consulted Lesly with Financial Counseling. Patient has DPOA-HC in chart designating her two daughters, Deana and Mirlande. Patient plans to return home at time of discharge. Discharge Plan: Home
[2023-01-25 00:30] VITALS: BP_SYST 106
--- NOTE | 2023-01-25 02:27 | NUR ---
Shift assessment performed- see documentation. Pt is alert and oriented. PM meds administered. She is on room air with a CPAP at night. She denies pain or discomfort at this time. She was assisted to get comfortable in the bed. Pt called at 2330 and stated that she is having a hard time falling asleep. She takes melatonin at home and is requesting this. I called and spoke to BILLIE Pichardo who ordered melatonin 9 mg PRN to be administered. The order was placed in the computer and was administered as ordered to the pt. Fall precautions in place and call light within reach.
[2023-01-25 03:27] VITALS: BP 127/55; PULSE 89; TEMP 97.6
[2023-01-25 04:30] VITALS: BP_SYST 127
[2023-01-25 06:53] LABS: HEMATOCRIT 40.3 % (37.0-47.0); HEMOGLOBIN 13.2 g/dl (12.5-16.0); MEAN CELL VOLUME 97 fl (80.0-100.0); MEAN CORPUSCULAR HEMOGLOBIN 32 pg (27-31); MEAN CORPUSCULAR HGB CONC 33 g/dl (33.0-37.0); MEAN PLATELET VOLUME 9.1 fl (7.4-10.4); PLATELET COUNT 279 K/mm3 (130-400); RED BLOOD COUNT 4.15 M/mm3 (4.10-5.30); REDCELL DISTRIBUTION WIDTH-CV 13.8 % (11.5-14.5)
--- NOTE | 2023-01-25 07:00 | NUR ---
PT RESTING IN BED. PT IS ON RA. PT IS AXOX4. PT HAS CALL LIGHT AND INSTRUCTED TO CALL WT ALL NEEDS. 0945-PT CHANGE TO PO DIURETICS AND PO STEROIDS. PLAN TO DC TODAY. SW NOTIFIED AND ASSESSED FOR HOME HEALTH CARE NEEDS.
[2023-01-25 07:07] LABS: ALBUMIN 3.6 gm/dL (3.4-4.8); CALCIUM 9.6 mg/dL (8.4-10.2); CREATININE, serum 0.91 mg/dL (0.57-1.11); PHOSPHOROUS 3.5 mg/dL (2.3-4.7); POTASSIUM 4.1 mmol/L (3.5-4.5)
[2023-01-25 07:45] VITALS: BP 111/49; PULSE 91; TEMP 99.1
[2023-01-25 09:00] VITALS: BP_SYST 111
--- NOTE | 2023-01-25 10:40 | NUR ---
beater worker helper met with PT whom expressed patient would benefit from home health services. beater worker helper met with patient to present Medicare.gov options for home health agencies. Patient and her daughter whom was at bedside would review the information and notify the social services coordinator with the choice for agency. Patient reports she previously used [facility] but expressed mixed feelings about utilizing their services again. beater worker helper met with patient and daughter again to check on home health preference. Patient would like to utilize home health services through [facility]. beater worker helper expressed she would send the referral today and the agency would reach out to her likely on Friday. Patient understood. beater worker helper faxed referral to [facility] and left a message with [facility] to notify of the referral. Discharge Plan: Home with Home Health
--- NOTE | 2023-01-25 11:59 | NUR ---
Leach Runner rounds: Leach Runner provided supportive listening to Patient and Daughter Deana. Patient is hoping to go home to her cats today. Doctor arrived so Leach Runner left to allow for a private conversation. Leach Runner returned after the Doctor left to pray for Patient and Deana.
[2023-01-25] MEDS ORDERED: PREDNISONE10 MG PO ×2 (14:00)
[2023-01-25] MEDS ORDERED: LASIX 40MG TABL40 MG PO ×2 (14:06)
[2023-01-25] MEDS ORDERED: K-TAB10 PO ×2 (14:07)
--- NOTE | 2023-01-25 14:30 | NUR ---
IV AND TELE DC'D. DISCHARGE INSTRUCTIONS DISCUSSED WITH PT AND DAUGHTER. FOLLOW UP APPOINTMENTS AND LABWORK DISCUSSED. NEW PRESCRIPTIONS AND PREDNISONE TAPER DISCUSSED. HOME HEALTH DISCUSSED. ALL QUESTIONS ANSWERED. PT WHEELED OUT FOR DISCHARGE BY VALDO SANCHEZ, ACCOMPAINED BY DAUGHTER.
--- NOTE | 2023-01-26 12:22 | NUR ---
Ships Or Barges Loader faxed discharge summary and orders to [facility].
== END 2023-01-25 14:32 | disposition home health service (06) ==
LOC: COL.ER 17:50 → MEDICAL 21:36
PROVIDERS: Internal Medicine; Nurse Practitioner Family; Personal Emergency Response Attendant; ADMIT Internal Medicine
DX: I27.20 Pulmonary hypertension, unspecified (principal); R22.40 Localized swelling, mass and lump, unspecified lower limb; I50.23 Acute on chronic systolic (congestive) heart failure; J45.909 Unspecified asthma, uncomplicated; E66.01 Morbid (severe) obesity due to excess calories; G47.33 Obstructive sleep apnea (adult) (pediatric); K76.0 Fatty (change of) liver, not elsewhere classified; E11.9 Type 2 diabetes mellitus without complications; K21.9 Gastro-esophageal reflux disease without esophagitis; F41.9 Anxiety disorder, unspecified; F32.A Depression, unspecified; Z87.891 Personal history of nicotine dependence; Z86.73 Personal history of transient ischemic attack (TIA), and cerebral infarction without residual deficits; Z68.42 Body mass index [BMI] 45.0-49.9, adult; Z99.81 Dependence on supplemental oxygen; Z79.82 Long term (current) use of aspirin; Z79.899 Other long term (current) drug therapy
CPT/HCPCS: G0378; J1100; J1650; J1815; J1940; J2920; Q9967

== ENCOUNTER 2023-02-09 05:20 | Inpatient (IN) | payer MEDICARE ==
[~2023-02-09] VITALS: Ht 152.4 cm; Wt 107.0 kg
[~2023-02-09 05:20] MED LIST changes: +K-TAB10 PO; +LASIX 40MG TABL40 MG PO; +LIPITOR20 MG PO; +MAG-OX 400400 MG/TAB PO; +PREDNISONE10 MG PO; +TOPROL XL 50MG50 MG PO; +VOLTAREN 75 DR75 MG PO
[2023-02-09 08:41] LABS: BASO # 0.1 K/mm3 (0.0-0.2); BASO % 0.3 % (0.0-2.0); EOS # 0.1 K/mm3 (0.0-0.7); EOS % 0.6 % (0.0-4.0); GRAN # 18.5 K/mm3 (1.4-6.5); GRAN % 81.9 % (42.2-75.2); HEMATOCRIT 41.3 % (37.0-47.0); LYMPH # 2.7 K/mm3 (1.2-3.4); LYMPH % 12.1 % (20.0-51.0); MEAN CELL VOLUME 101 fl (80.0-100.0); MEAN CORPUSCULAR HEMOGLOBIN 32 pg (27-31); MEAN CORPUSCULAR HGB CONC 32 g/dl (33.0-37.0); MEAN PLATELET VOLUME 9.3 fl (7.4-10.4); MONO % 4.6 % (1.7-9.3); PLATELET COUNT 213 K/mm3 (130-400); RED BLOOD COUNT 4.08 M/mm3 (4.10-5.30)
[2023-02-09 08:55] LABS: ALBUMIN 3.3 gm/dL (3.4-4.8); BILIRUBIN,TOTAL 1.9 mg/dL (0.2-1.2); C-REACTIVE PROTEIN 7.54 mg/dL (0.00-0.50); CALCIUM 9.3 mg/dL (8.4-10.2); CREATININE, serum 0.81 mg/dL (0.57-1.11); POTASSIUM 4.2 mmol/L (3.5-4.5); TOTAL PROTEIN 6.6 gm/dL (6.2-8.1)
[2023-02-09 12:00] VITALS: BP 120/84; PULSE 84; TEMP 98.5
[2023-02-09] MEDS ORDERED: CYMBALTA 60MG60 MG PO (12:07)
[2023-02-09 15:28] VITALS: BP 153/75; PULSE 100; TEMP 98.5
[2023-02-09 17:19] VITALS: BP_SYST 136
[2023-02-09 19:05] VITALS: BP 116/67; PULSE 91; TEMP 99.5
--- NOTE | 2023-02-09 19:45 | NUR ---
Patient resting in bed. States she has pain in her left lower quadrant rating it at 8/10. Denies any pain anywhere else. Assessment complete. IV in right AC flushes with no complications. Denies any other needs at this time. Call light and personal items in reach. Bed in low position and bed alarm on.
[2023-02-09 21:00] VITALS: BP_SYST 116
[2023-02-09 23:23] VITALS: BP 116/50; PULSE 87; TEMP 99.2
[2023-02-10] VITALS (12 sets, daily range): BP systolic 68–136; BP diastolic 50–84; PULSE 80–85; TEMP 97.4–99.5
--- NOTE | 2023-02-10 06:00 | NUR ---
Patient resting in bed. Rates her pain in her abd an 8/10, pain meds given. Water and pepsi given per request, denies any other need. Call light and persoonal items in reach. Bed in low position.
[2023-02-10 06:16] LABS: BASO % 0.2 % (0.0-2.0); EOS # 0.2 K/mm3 (0.0-0.7); EOS % 0.9 % (0.0-4.0); GRAN # 15.4 K/mm3 (1.4-6.5); GRAN % 80.9 % (42.2-75.2); HEMATOCRIT 38.7 % (37.0-47.0); HEMOGLOBIN 12.8 g/dl (12.5-16.0); LYMPH # 2.5 K/mm3 (1.2-3.4); MEAN CELL VOLUME 98 fl (80.0-100.0); MEAN CORPUSCULAR HEMOGLOBIN 33 pg (27-31); MEAN CORPUSCULAR HGB CONC 33 g/dl (33.0-37.0); MEAN PLATELET VOLUME 9.2 fl (7.4-10.4); MONO # 0.8 K/mm3 (0.1-0.6); MONO % 4.4 % (1.7-9.3); PLATELET COUNT 186 K/mm3 (130-400); RED BLOOD COUNT 3.94 M/mm3 (4.10-5.30); REDCELL DISTRIBUTION WIDTH-CV 13.7 % (11.5-14.5)
[2023-02-10 06:46] LABS: ALBUMIN 3.1 gm/dL (3.4-4.8); CALCIUM 8.9 mg/dL (8.4-10.2); CREATININE, serum 0.86 mg/dL (0.57-1.11); POTASSIUM 3.6 mmol/L (3.5-4.5)
--- NOTE | 2023-02-10 15:14 | NUR ---
transfer and line up worker met with patient to discuss discharge planning. Patient reports she lives alone in [place]. Best contact center associate is Deana, her daughter. Patient's primary care physician is Dr. Zamudio and preferred pharmacy is [facility]. Patient has no concerns of affording medications. Patient believes she has a DPOA-HC, Deana. Patient has a 4 wheel walker, cane, shower chair and CPAP. Patient reports she would like to get a shower bench to better fit in her bath tub. Patient needs assistance with dressing and toileting. Patient expressed her daughter helps her with these things when she is at her house. Patient would like to return home and continue her home health through [facility]. Discharge Plan: Home with Home Health
--- NOTE | 2023-02-10 19:30 | NUR ---
Patient resting in bed. Rates her pain at an 8/10 in her abd, pain meds given. Denies any other pain. Assessment complete. IV in right AC flushes easily with no complications. Denies any other needs at this time. Call light and personal items in reach. Bed in low position
--- NOTE | 2023-02-10 19:32 | NUR ---
Pt medicated with Morphine IV for LLQ pain throughout the shift. Reports pain increases with any activity. Patient eats most of meals without c/o nausea. Fluid Restriction of 1.5L in place.
[2023-02-11] VITALS (12 sets, daily range): BP systolic 115–128; BP diastolic 56–68; PULSE 71–80; TEMP 97.6–99.1
[2023-02-11 05:25] LABS: BASO % 0.2 % (0.0-2.0); EOS # 0.2 K/mm3 (0.0-0.7); EOS % 1.3 % (0.0-4.0); GRAN # 9.9 K/mm3 (1.4-6.5); GRAN % 79.7 % (42.2-75.2); HEMOGLOBIN 11.6 g/dl (12.5-16.0); LYMPH # 1.9 K/mm3 (1.2-3.4); LYMPH % 15.5 % (20.0-51.0); MEAN CELL VOLUME 99 fl (80.0-100.0); MEAN CORPUSCULAR HEMOGLOBIN 32 pg (27-31); MEAN CORPUSCULAR HGB CONC 33 g/dl (33.0-37.0); MEAN PLATELET VOLUME 9.1 fl (7.4-10.4); MONO # 0.4 K/mm3 (0.1-0.6); PLATELET COUNT 179 K/mm3 (130-400); RED BLOOD COUNT 3.62 M/mm3 (4.10-5.30); REDCELL DISTRIBUTION WIDTH-CV 13.4 % (11.5-14.5)
[2023-02-11 05:30] LABS: HEMATOCRIT 35.7 % (37.0-47.0)
[2023-02-11 05:39] LABS: ALBUMIN 2.7 gm/dL (3.4-4.8); CALCIUM 8.7 mg/dL (8.4-10.2); CREATININE, serum 0.9 mg/dL (0.57-1.11); PHOSPHOROUS 2.9 mg/dL (2.3-4.7); POTASSIUM 3.9 mmol/L (3.5-4.5)
--- NOTE | 2023-02-11 06:10 | NUR ---
Patient resting in bed. Rates her pain a 7/10 in her abd, pain meds given. Denies any other pain or needs at this time. Call light and personal items in reach. Bed in low position
--- NOTE | 2023-02-11 09:25 | NUR ---
Initial visit; Patient thanked Lamination Spinner for offering Bod's blessings and for Lamination Spinner to keep her in her prayers.
--- NOTE | 2023-02-11 19:30 | NUR ---
Patient resting in bed talking with daughter on the phone. Rates her pain at an 8/10 in her abd, pain meds given. Denies any other pain. Assessment complete. IV in right AC infusing with no complications. Denies any other needs at this time. Call light and personal items in reach. Bed in low position.
[2023-02-12 01:04] VITALS: BP_SYST 126
[2023-02-12 03:35] VITALS: BP 115/74; PULSE 73; TEMP 98.2
[2023-02-12 05:04] VITALS: BP_SYST 115
[2023-02-12 05:57] LABS: COLLECTION METHOD CLEAN CATCH
[2023-02-12 06:24] LABS: PH 5.5 (5.0-8.5); URINE APPEARANCE Clear (CLEAR/HAZY); URINE BLOOD Negative (NEGATIVE); URINE COLOR Amber (YELLOW); URINE GLUCOSE Negative (NEGATIVE); URINE KETONE TRACE (NEGATIVE); URINE NITRATE Negative (NEGATIVE); URINE PROTEIN(semi-quant) Negative (NEGATIVE); URINE UROBILINOGEN 0.2 E.U/dL (0.2-1.0)
[2023-02-12 06:25] LABS: MUCOUS Present (NOT PRESENT); SQUAMOUS EPITHELIAL 20-50 /hpf (0-10); URINE BACTERIA Rare /hpf (NONE SEEN); URINE CALCIUM OXALATE CRYSTAL Present (NOT PRESENT); URINE RBC 0-2 /hpf (0-2)
[2023-02-12 06:29] LABS: ALBUMIN 2.8 gm/dL (3.4-4.8); BASO % 0.3 % (0.0-2.0); CALCIUM 9.1 mg/dL (8.4-10.2); CREATININE, serum 0.77 mg/dL (0.57-1.11); EOS # 0.3 K/mm3 (0.0-0.7); EOS % 2.8 % (0.0-4.0); GRAN # 8.4 K/mm3 (1.4-6.5); GRAN % 70.4 % (42.2-75.2); LYMPH # 2.7 K/mm3 (1.2-3.4); LYMPH % 22.3 % (20.0-51.0); MAGNESIUM 2.3 mg/dL (1.6-2.6); MEAN CELL VOLUME 99 fl (80.0-100.0); MEAN CORPUSCULAR HEMOGLOBIN 32 pg (27-31); MEAN CORPUSCULAR HGB CONC 33 g/dl (33.0-37.0); MEAN PLATELET VOLUME 9.3 fl (7.4-10.4); MONO # 0.5 K/mm3 (0.1-0.6); MONO % 3.8 % (1.7-9.3); PHOSPHOROUS 3.3 mg/dL (2.3-4.7); PLATELET COUNT 218 K/mm3 (130-400); POTASSIUM 4.3 mmol/L (3.5-4.5); RED BLOOD COUNT 3.73 M/mm3 (4.10-5.30); REDCELL DISTRIBUTION WIDTH-CV 13.6 % (11.5-14.5)
--- NOTE | 2023-02-12 06:30 | NUR ---
Patient resting in bed. Denies any pain or needs at this time. States she had a very large BM this morning. Call light and personal items in reach. Bed in low position.
[2023-02-12 06:34] LABS: HEMATOCRIT 36.9 % (37.0-47.0)
[2023-02-12 07:14] VITALS: BP 135/48; PULSE 73; TEMP 98.3
[2023-02-12 09:00] VITALS: BP_SYST 135
--- NOTE | 2023-02-12 09:00 | NUR ---
Assessment completed. Reports LLQ pain 08/28. IV d/c'd earlier in shift due to infilltration. Dr. Jaeger at bedside. Pt will discharge today. Tele d/c'd. Daughter will shower patient and requests a 0945 discharge.
[2023-02-12] MEDS ORDERED: AMOXICILLIN 8751 TAB PO (09:03)
[2023-02-12] MEDS ORDERED: ROXICODONE 55 MG/TAB PO (09:04)
--- NOTE | 2023-02-12 09:44 | NUR ---
Discharge instructions reveiwed with patient- verbalizes understanding. Pt escorted to private vehicle via wheelchair and discharged home with daughter.
--- NOTE | 2023-02-12 15:56 | NUR ---
Patient was discharged with HH orders. SW sent [facility] discharge orders to resume services.
== END 2023-02-12 09:50 | disposition home health service (06) | DRG 872 ==
LOC: COL.ER 05:20 → MEDICAL 10:05
PROVIDERS: Family Medicine; ADMIT Internal Medicine
DX: A41.9 Sepsis, unspecified organism (principal); K57.92 Diverticulitis of intestine, part unspecified, without perforation or abscess without bleeding; I50.32 Chronic diastolic (congestive) heart failure; Z68.42 Body mass index [BMI] 45.0-49.9, adult; G45.9 Transient cerebral ischemic attack, unspecified; I27.20 Pulmonary hypertension, unspecified; J45.909 Unspecified asthma, uncomplicated; E66.01 Morbid (severe) obesity due to excess calories; G47.33 Obstructive sleep apnea (adult) (pediatric); K74.60 Unspecified cirrhosis of liver; E11.9 Type 2 diabetes mellitus without complications; F32.89 Other specified depressive episodes; K21.9 Gastro-esophageal reflux disease without esophagitis; K59.00 Constipation, unspecified
CPT/HCPCS: J1650; J1815; J2270; J2405; J2543; J7120; Q9967

== ENCOUNTER 2023-04-19 16:10 | Emergency (ER) | payer MEDICARE ==
[~2023-04-19] VITALS: Ht 152.4 cm; Wt 108.8 kg
[~2023-04-19 16:10] MED LIST changes: +CYMBALTA 60MG60 MG PO
[2023-04-19 16:14] VITALS: TEMP 98.1
[2023-04-19] MEDS ORDERED: SUBOXONE 2 MG-01 TAB SL (17:19)
[2023-04-19 17:38] VITALS: BP 154/88; PULSE 81
== END 2023-04-19 17:50 | disposition home or self-care (01) ==
LOC: COL.ER 16:10
DX: F11.23 Opioid dependence with withdrawal (principal); E66.9 Obesity, unspecified

== ENCOUNTER 2023-04-21 07:05 | Inpatient (IN) | payer MEDICARE ==
[~2023-04-21] VITALS: Ht 167.6 cm; Wt 109.6 kg
[2023-04-21] VITALS (8 sets, daily range): BP systolic 100–128; BP diastolic 67–75; PULSE 108–121; TEMP 98–98.6
[~2023-04-21 07:05] MED LIST changes: +SUBOXONE 2 MG-01 TAB SL
[2023-04-21 07:28] LABS: BASO % 0.2 % (0.0-2.0); EOS # 0.1 K/mm3 (0.0-0.7); EOS % 0.4 % (0.0-4.0); GRAN # 14.9 K/mm3 (1.4-6.5); GRAN % 79.8 % (42.2-75.2); HEMATOCRIT 43.7 % (37.0-47.0); HEMOGLOBIN 13.6 g/dl (12.5-16.0); LYMPH # 2.6 K/mm3 (1.2-3.4); LYMPH % 14.2 % (20.0-51.0); MEAN CELL VOLUME 99 fl (80.0-100.0); MEAN CORPUSCULAR HEMOGLOBIN 31 pg (27-31); MEAN CORPUSCULAR HGB CONC 31 g/dl (33.0-37.0); MEAN PLATELET VOLUME 8.7 fl (7.4-10.4); MONO # 0.9 K/mm3 (0.1-0.6); PLATELET COUNT 246 K/mm3 (130-400); RED BLOOD COUNT 4.41 M/mm3 (4.10-5.30); REDCELL DISTRIBUTION WIDTH-CV 13.1 % (11.5-14.5)
[2023-04-21 07:45] LABS: ALBUMIN 3.2 gm/dL (3.4-4.8); CALCIUM 9.5 mg/dL (8.4-10.2); CREATININE, serum 0.78 mg/dL (0.57-1.11); POTASSIUM 3.8 mmol/L (3.5-4.5); TOTAL PROTEIN 6.9 gm/dL (6.2-8.1)
[2023-04-21] MEDS ORDERED: fentaNYL 50 MCG/ML 2 ML VIAL IV ONE (07:45)
[2023-04-21] MEDS ORDERED: Ondansetron 4 MG/2 ML VIAL IV ONE (07:45)
[2023-04-21] MEDS ORDERED: Acetaminophen 500 MG TAB PO ONE (07:45)
[2023-04-21] MEDS ORDERED: Iohexol 300 - 100 ML VIAL IV ONE (08:52)
[2023-04-21] MEDS ORDERED: NS 100 ML IV SCH (08:53)
[2023-04-21] MEDS ORDERED: Doxycycline Monohydrate 100 MG CAP PO ONE (10:00)
[2023-04-21] MEDS ORDERED: Docusate Sodium 100 MG CAP PO PRN (11:00)
[2023-04-21] MEDS ORDERED: Polyethylene Glycol 3350 17 GM PDS PO PRN (11:00)
[2023-04-21] MEDS ORDERED: Ondansetron 4 MG/2 ML VIAL IV PRN (11:00)
[2023-04-21] MEDS ORDERED: Acetaminophen 325 MG TAB PO PRN (11:00)
[2023-04-21] MEDS ORDERED: oxyCODONE 5 MG TAB PO PRN (11:15)
[2023-04-21] MEDS ORDERED: NS 1,000 ML IV ONE (11:30)
[2023-04-21] MEDS ORDERED: Albuterol/Ipratropium 3 MG-0.5 MG/3 ML Neb Soln IH SCH (14:00)
[2023-04-21 15:01] LABS: COLLECTION METHOD CLEAN CATCH
[2023-04-21 15:33] LABS: PH 5.5 (5.0-8.5); URINE APPEARANCE Clear (CLEAR/HAZY); URINE COLOR Yellow (YELLOW); URINE GLUCOSE Negative (NEGATIVE); URINE KETONE TRACE (NEGATIVE); URINE PROTEIN(semi-quant) TRACE (NEGATIVE)
[2023-04-21 15:34] LABS: SQUAMOUS EPITHELIAL 0-2 /hpf (0-10); URINE BACTERIA Rare /hpf (NONE SEEN); URINE BLOOD TRACE-INTACT (NEGATIVE); URINE NITRATE Negative (NEGATIVE); URINE RBC 0-2 /hpf (0-2); URINE UROBILINOGEN 0.2 E.U/dL (0.2-1.0)
[2023-04-21] MEDS ORDERED: Budesonide Neb Susp 0.5 MG/2 ML AMP IH SCH (19:00)
[2023-04-21] MEDS ORDERED: Formoterol Neb Soln 20 MCG/2 ML UD IH SCH (19:00)
--- NOTE | 2023-04-21 20:00 | NUR ---
Assessment complete. A&Ox4. Denies nausea. Short of air with activity. Rating pain 6/10 on pain scale to left shoulder-oxycodone given per dr order. Noted to have occasional wheezes-insp/exp to bila upper lobes/diminished bases. Currently on CPAP. NS@125ml/hr to right hand INT infusing without difficulty. VS stable. Left shoulder in sling. Plan of care discussed for this shift to include meds/pain control/calling for questions/concerns. Verbalizes understanding. Repositioned in bed on right side with pillow in between legs. Call light in reach. Will monitor.
[2023-04-21] MEDS ORDERED: DULoxetine 30 MG CAP PO SCH (21:00)
[2023-04-21] MEDS ORDERED: Atorvastatin 20 MG TAB PO SCH (21:00)
[2023-04-21] MEDS ORDERED: Doxycycline Monohydrate 100 MG CAP PO SCH (21:00)
[2023-04-21] MEDS ORDERED: NS 1,000 ML IV SCH (22:00)
[2023-04-22] VITALS (10 sets, daily range): BP systolic 94–128; BP diastolic 56–78; PULSE 96–109; TEMP 97.7–98.2
--- NOTE | 2023-04-22 05:34 | NUR ---
Patient had an uneventful night. Received one dose of oxycodone for pain to left shoulder. VS remained stable. O2@1L/NC-wore CPAP overnight. Right hand INT with NS@125ml/hr infusing without difficulty. Left upper extremity in sling. Denies current needs. Call light in reach. Will monitor.
[2023-04-22 06:36] LABS: BASO % 0.2 % (0.0-2.0); EOS # 0.2 K/mm3 (0.0-0.7); EOS % 1.6 % (0.0-4.0); GRAN # 8.8 K/mm3 (1.4-6.5); GRAN % 72.6 % (42.2-75.2); LYMPH # 2.4 K/mm3 (1.2-3.4); LYMPH % 19.3 % (20.0-51.0); MEAN CELL VOLUME 99 fl (80.0-100.0); MEAN CORPUSCULAR HGB CONC 32 g/dl (33.0-37.0); MEAN PLATELET VOLUME 8.9 fl (7.4-10.4); MONO # 0.7 K/mm3 (0.1-0.6); MONO % 5.7 % (1.7-9.3); PLATELET COUNT 187 K/mm3 (130-400); RED BLOOD COUNT 3.62 M/mm3 (4.10-5.30); REDCELL DISTRIBUTION WIDTH-CV 13.2 % (11.5-14.5)
[2023-04-22 06:41] LABS: HEMATOCRIT 35.7 % (37.0-47.0); HEMOGLOBIN 11.3 g/dl (12.5-16.0); MEAN CORPUSCULAR HEMOGLOBIN 31 pg (27-31)
[2023-04-22 06:53] LABS: CALCIUM 8.3 mg/dL (8.4-10.2); CREATININE, serum 0.7 mg/dL (0.57-1.11); POTASSIUM 3.3 mmol/L (3.5-4.5)
[2023-04-22] MEDS ORDERED: Montelukast 10 MG TAB PO SCH (09:00)
[2023-04-22] MEDS ORDERED: Furosemide 40 MG TAB PO SCH (09:00)
[2023-04-22] MEDS ORDERED: Magnesium Oxide 400 MG TAB PO SCH (09:00)
[2023-04-22] MEDS ORDERED: ARIPiprazole 5 MG TAB PO SCH (09:00)
[2023-04-22] MEDS ORDERED: DULoxetine 60 MG CAP PO SCH (09:00)
--- NOTE | 2023-04-22 09:25 | NUR ---
Patient is resting in bed, she just came back from restroom. Complains of soar throat. Dr Marquez at bedside. Assessment completed, meds provided. Right now getting her breathing treatment. No further needs at this time. Call light within reach.
--- NOTE | 2023-04-22 10:55 | NUR ---
child welfare worker met with patient to discuss discharge planning. Patient reports she lives in [place] currently with her daughter, Deana, P# [phone]. PCP is Dr. Zamudio, preferred pharmacy is [id number]. Patient has no current issues affording medications. Insurance is Medicare A & B. Patient reports she has a DPOA-HC, appointing Deana as her primary agent. SW will request a copy from her daughter. Patient reports she has a walker, cane and CPAP at home. Patient reports she was living on her own but has been living with her daughter as she needs assistance with bathing, dressing and using the restroom. Patient has a form of transportation to get to and from appointments. Patient reports she needs rehab. SW contacted Ness, PT, to discuss her PT evaluation. Ness expressed she would get back to the social work associate with her recommendations. Discharge Plan: TBD
[2023-04-22] MEDS ORDERED: PROTONIX20 MG PO (13:29)
[2023-04-22] MEDS ORDERED: K-DUR 10 MEQ T10 MEQ PO (13:37)
--- NOTE | 2023-04-22 13:48 | NUR ---
horticulture worker was contacted by Keesha from [facility], P# [phone], whom expressed they have been working with patient with home health PT and OT services. Keesha expressed they would like to stay updated when patient discharges if she returns home with home health or SNF. LENIN will continue to monitor patient's care. LENIN faxed clinical updates to patient's home health agency, [facility].
--- NOTE | 2023-04-22 16:47 | NUR ---
post tensioning ironworker reviewed PT notes and they were recommending SNF prior to returning home. SW met with patient and provided Medicare.gov list of options for SNF. Patient would like to go to [facility] if her insurance covers it 100% otherwise she would like to return home with [facility].
[2023-04-23] VITALS (8 sets, daily range): BP systolic 111–144; BP diastolic 58–84; PULSE 92–95; TEMP 97.5–99
[2023-04-23 07:05] LABS: BASO % 0.2 % (0.0-2.0); EOS # 0.3 K/mm3 (0.0-0.7); EOS % 2.2 % (0.0-4.0); GRAN # 8.1 K/mm3 (1.4-6.5); GRAN % 72.4 % (42.2-75.2); HEMOGLOBIN 11.8 g/dl (12.5-16.0); LYMPH # 2.1 K/mm3 (1.2-3.4); MEAN CELL VOLUME 98 fl (80.0-100.0); MEAN CORPUSCULAR HEMOGLOBIN 31 pg (27-31); MEAN CORPUSCULAR HGB CONC 32 g/dl (33.0-37.0); MEAN PLATELET VOLUME 9.3 fl (7.4-10.4); MONO # 0.6 K/mm3 (0.1-0.6); MONO % 5.7 % (1.7-9.3); PLATELET COUNT 202 K/mm3 (130-400); RED BLOOD COUNT 3.79 M/mm3 (4.10-5.30); REDCELL DISTRIBUTION WIDTH-CV 13.1 % (11.5-14.5)
[2023-04-23 07:21] LABS: CALCIUM 8.9 mg/dL (8.4-10.2); CREATININE, serum 0.7 mg/dL (0.57-1.11); POTASSIUM 3.3 mmol/L (3.5-4.5)
--- NOTE | 2023-04-23 08:00 | NUR ---
Patient is resting in bed, family at bedside, alert and orineted X 4. Continues with 1L O2 NC. Assessment completed, meds given, no further needs at this time. Call light within reach.
--- NOTE | 2023-04-23 08:42 | NUR ---
SPO2 ON 3LPM 98%, BREATH SOUNDS DIMINISHED BASES, NPC, LAURA WEL RT TX WILLIE MK TX.
--- NOTE | 2023-04-23 09:50 | NUR ---
Initial visit; Patient thanked Chip Unloader for stopping by and offering God's blessings and well wishes. Chip Unloader will Follow up when Cesilia isn't busy with a Nurse and others.
[2023-04-23] MEDS ORDERED: Nystatin Powder **** subs to Miconazole Powder TOP SCH (11:22)
[2023-04-23] MEDS ORDERED: NYSTATIN POWDER30 GM TOP (11:27)
[2023-04-23] MEDS ORDERED: AMOXICILLIN 8751 TAB PO (11:27)
[2023-04-23] MEDS ORDERED: Miconazole 2% Topical Powder BOTTLE TP SCH (12:00)
--- NOTE | 2023-04-23 13:20 | NUR ---
PATIENT DID NOT QUALIFY FOR HOME O2. SPO2 94% DURING WALK.
--- NOTE | 2023-04-23 14:55 | NUR ---
Patient and family were provided with discharge information, all questions answered. IV access was discontinued.
--- NOTE | 2023-04-23 16:09 | NUR ---
vegetable farm worker contacted [facility] as patient had stated that she had stayed there for SNF last but could not recall the dates. [facility] was able to provide the dates that patient was there last (03/03-03/21). As patient had not been out of SNF for 60 days, patient would be responsible for 20% of her bill which would be $200 per day as established by Medicare. LENIN met with patient and her daughter, Deana, and provided the information above. Patient reports she is unable to afford to go to SNF at this time. LENIN spoke with PT and they expressed she could go home with home health. LENIN spoke with the daughter to verify if she would be able to take care of her at home. Deana expressed she is currently staying with her and she is okay with her returning home with home health. Deana expressed when she is not home, she has a friend stay to ensure her mom has support if needed. Patient expressed she would like to go home and feels comfortable with the support she has. LENIN verified patient would like to continue home health through her current provider, [facility]. Patient expressed she would like to continue those services. LENIN was notified patient is discharging home with home health. LENIN notified [facility] with Home Health. LENIN faxed discharge orders to [facility]. Discharge Plan: Home with Home Health
== END 2023-04-23 14:30 | disposition home health service (06) | DRG 193 ==
LOC: COL.ER 07:05 → MEDICAL 11:03
PROVIDERS: Personal Emergency Response Attendant; ADMIT Internal Medicine
DX: J18.9 Pneumonia, unspecified organism (principal); J96.91 Respiratory failure, unspecified with hypoxia; I50.32 Chronic diastolic (congestive) heart failure; Z68.42 Body mass index [BMI] 45.0-49.9, adult; I27.20 Pulmonary hypertension, unspecified; E66.01 Morbid (severe) obesity due to excess calories; G47.33 Obstructive sleep apnea (adult) (pediatric); K21.9 Gastro-esophageal reflux disease without esophagitis; F41.9 Anxiety disorder, unspecified; F32.A Depression, unspecified; K58.9 Irritable bowel syndrome, unspecified; E11.9 Type 2 diabetes mellitus without complications; Z20.822 Contact with and (suspected) exposure to COVID-19; M25.512 Pain in left shoulder; K76.0 Fatty (change of) liver, not elsewhere classified; E87.6 Hypokalemia; K74.60 Unspecified cirrhosis of liver; J44.9 Chronic obstructive pulmonary disease, unspecified; Z99.89 Dependence on other enabling machines and devices; Z86.73 Personal history of transient ischemic attack (TIA), and cerebral infarction without residual deficits; Z87.19 Personal history of other diseases of the digestive system; Z88.6 Allergy status to analgesic agent; Z88.1 Allergy status to other antibiotic agents; Z88.5 Allergy status to narcotic agent; Z88.2 Allergy status to sulfonamides; Z88.8 Allergy status to other drugs, medicaments and biological substances; Z79.82 Long term (current) use of aspirin; Z79.899 Other long term (current) drug therapy; Z99.81 Dependence on supplemental oxygen; Z23 Encounter for immunization
CPT/HCPCS: J1650; J2405; J2543; J3010; J7030; Q9967

== ENCOUNTER 2023-04-25 12:31 | Emergency (ER) | payer MEDICARE ==
[~2023-04-25] VITALS: Ht 152.4 cm; Wt 109.5 kg
[~2023-04-25 12:31] MED LIST changes: +K-DUR 10 MEQ T10 MEQ PO; +NYSTATIN POWDER30 GM TOP; +PROTONIX20 MG PO
[2023-04-25 12:42] VITALS: TEMP 97.9
[2023-04-25 13:59] LABS: BASO % 0.2 % (0.0-2.0); EOS # 0.2 K/mm3 (0.0-0.7); EOS % 1.8 % (0.0-4.0); GRAN % 67.5 % (42.2-75.2); HEMOGLOBIN 13.5 g/dl (12.5-16.0); LYMPH # 2.1 K/mm3 (1.2-3.4); LYMPH % 23.9 % (20.0-51.0); MEAN CELL VOLUME 95 fl (80.0-100.0); MEAN CORPUSCULAR HEMOGLOBIN 31 pg (27-31); MEAN CORPUSCULAR HGB CONC 33 g/dl (33.0-37.0); MEAN PLATELET VOLUME 8.7 fl (7.4-10.4); MONO # 0.5 K/mm3 (0.1-0.6); MONO % 5.8 % (1.7-9.3); RED BLOOD COUNT 4.31 M/mm3 (4.10-5.30); REDCELL DISTRIBUTION WIDTH-CV 12.8 % (11.5-14.5)
[2023-04-25 14:05] LABS: ALBUMIN 3.1 gm/dL (3.4-4.8); CALCIUM 9.5 mg/dL (8.4-10.2); CREATININE, serum 0.8 mg/dL (0.57-1.11); POTASSIUM 3.7 mmol/L (3.5-4.5); TOTAL PROTEIN 7.4 gm/dL (6.2-8.1)
[2023-04-25 14:11] LABS: PLATELET COUNT 194 K/mm3 (130-400); TROPONIN-I 0.018 ng/mL (0.00-0.033)
[2023-04-25 14:28] LABS: COLLECTION METHOD CLEAN CATCH
[2023-04-25 14:58] LABS: PH 5.5 (5.0-8.5); URINE APPEARANCE Clear (CLEAR/HAZY); URINE COLOR Yellow (YELLOW)
[2023-04-25 14:59] LABS: URINE BLOOD Negative (NEGATIVE); URINE GLUCOSE Negative (NEGATIVE); URINE KETONE Negative (NEGATIVE); URINE NITRATE Negative (NEGATIVE); URINE PROTEIN(semi-quant) Negative (NEGATIVE); URINE UROBILINOGEN 0.2 E.U/dL (0.2-1.0)
[2023-04-25 15:02] LABS: URINE RBC 0-2 /hpf (0-2); URINE WBC 0-2 /hpf (0-2)
[2023-04-25] MEDS ORDERED: NEURONTIN100 MG/CAP PO (15:13)
[2023-04-25 15:43] VITALS: BP 121/75; PULSE 81
== END 2023-04-25 15:43 | disposition home or self-care (01) ==
LOC: COL.ER 12:31
PROVIDERS: Emergency Medicine
DX: G25.81 Restless legs syndrome (principal); R77.0 Abnormality of albumin; I50.9 Heart failure, unspecified; Z79.899 Other long term (current) drug therapy

== ENCOUNTER 2023-11-14 12:02 | Emergency (ER) | payer MEDICARE, MEDICAID ==
[~2023-11-14] VITALS: Ht 152.4 cm; Wt 104.7 kg
[~2023-11-14 12:02] MED LIST changes: +MACROBID 1100 MG/CAP PO; +NEURONTIN100 MG/CAP PO; +PREDNISONE50 MG PO
[2023-11-14 12:10] VITALS: TEMP 98.5
[2023-11-14 12:53] LABS: BASO % 0.2 % (0.0-2.0); EOS # 0.2 K/mm3 (0.0-0.7); EOS % 1.5 % (0.0-4.0); GRAN # 8.7 K/mm3 (1.4-6.5); GRAN % 70.6 % (42.2-75.2); HEMATOCRIT 42.8 % (37.0-47.0); HEMOGLOBIN 13.5 g/dl (12.5-16.0); LYMPH # 2.7 K/mm3 (1.2-3.4); LYMPH % 21.7 % (20.0-51.0); MEAN CELL VOLUME 100 fl (80.0-100.0); MEAN CORPUSCULAR HEMOGLOBIN 32 pg (27-31); MEAN CORPUSCULAR HGB CONC 32 g/dl (33.0-37.0); MEAN PLATELET VOLUME 9.8 fl (7.4-10.4); MONO # 0.7 K/mm3 (0.1-0.6); MONO % 5.6 % (1.7-9.3); PLATELET COUNT 226 K/mm3 (130-400); RED BLOOD COUNT 4.29 M/mm3 (4.10-5.30)
[2023-11-14 13:08] LABS: ALANINE AMINOTRANSFERASE 25 U/L (0-55); ALBUMIN 3.6 g/dL (3.4-4.8); ALKALINE PHOSPHATASE 132 U/L (40-150); ANION GAP 13 mmol/L (7-16); AST,SGOT 39 U/L (5-34); BILIRUBIN,TOTAL 1.4 mg/dL (0.2-1.2); BLOOD UREA NITROGEN 17 mg/dL (10-20); CALCIUM 9.2 mg/dL (8.4-10.2); CHLORIDE 103 mEq/L (98-107); CREATININE, serum 0.89 mg/dL (0.57-1.11); GLUCOSE 91 mg/dL (70-99); LIPASE 162 U/L (8-78); POTASSIUM 4.2 mEq/L (3.5-4.5); SODIUM 141 mEq/L (136-145); TOTAL PROTEIN 7.5 g/dl (6.2-8.1)
[2023-11-14 13:18] LABS: TROPONIN-I < 0.010 ng/mL (0.00-0.033)
[2023-11-14 14:30] VITALS: BP 110/87; PULSE 70
== END 2023-11-14 14:30 | disposition home or self-care (01) ==
LOC: COL.ER 12:02
PROVIDERS: Physician Assistant
DX: K30 Functional dyspepsia (principal); I50.9 Heart failure, unspecified; E66.01 Morbid (severe) obesity due to excess calories; Z79.899 Other long term (current) drug therapy; Z68.42 Body mass index [BMI] 45.0-49.9, adult

== ENCOUNTER 2023-12-13 15:29 | Emergency (ER) | payer MEDICARE, MEDICAID ==
[~2023-12-13] VITALS: Ht 152.4 cm; Wt 107.7 kg
[2023-12-13 15:36] VITALS: TEMP 98.5
[2023-12-13] MEDS ORDERED: Morphine 4 MG/ML VIAL IV ONE (16:00)
[2023-12-13 16:06] LABS: HEMATOCRIT 39.9 % (37.0-47.0); HEMOGLOBIN 12.8 g/dl (12.5-16.0); MEAN CELL VOLUME 97 fl (80.0-100.0); MEAN CORPUSCULAR HEMOGLOBIN 31 pg (27-31); MEAN CORPUSCULAR HGB CONC 32 g/dl (33.0-37.0); MEAN PLATELET VOLUME 8.9 fl (7.4-10.4); PLATELET COUNT 284 K/mm3 (130-400); REDCELL DISTRIBUTION WIDTH-CV 13.4 % (11.5-14.5)
[2023-12-13 16:20] LABS: ALANINE AMINOTRANSFERASE 32 U/L (0-55); ALBUMIN 3.5 g/dL (3.4-4.8); ALKALINE PHOSPHATASE 118 U/L (40-150); ANION GAP 16 mmol/L (7-16); AST,SGOT 24 U/L (5-34); BILIRUBIN,TOTAL 0.9 mg/dL (0.2-1.2); BLOOD UREA NITROGEN 23 mg/dL (10-20); CALCIUM 8.9 mg/dL (8.4-10.2); CHLORIDE 104 mEq/L (98-107); CREATININE, serum 1.04 mg/dL (0.57-1.11); GLUCOSE 184 mg/dL (70-99); MAGNESIUM 1.8 mg/dL (1.6-2.6); POTASSIUM 3.6 mEq/L (3.5-4.5); SODIUM 140 mEq/L (136-145)
[2023-12-13 16:30] LABS: TROPONIN-I < 0.010 ng/mL (0.00-0.033)
[2023-12-13 16:42] LABS: HYPOCHROMIA 2+; LYMPHOCYTE 20 % (20.0-51.0); NEUTROPHILS 77 % (42.0-75.2); PLATELET ESTIMATE NORMAL (NORMAL)
[2023-12-13 17:56] VITALS: BP 138/75; PULSE 90
[2023-12-13] MEDS ORDERED: Iohexol 300 - 100 ML VIAL IV ONE (18:08)
[2023-12-13] MEDS ORDERED: NS 100 ML IV ONE (18:08)
== END 2023-12-13 18:01 | disposition home or self-care (01) ==
LOC: COL.ER 15:29
PROVIDERS: Emergency Medicine
DX: R07.81 Pleurodynia (principal); Z87.891 Personal history of nicotine dependence; Z87.74 Personal history of (corrected) congenital malformations of heart and circulatory system
CPT/HCPCS: J2270; Q9967

== ENCOUNTER 2023-12-29 22:39 | Emergency (ER) | payer MEDICARE, MEDICAID ==
[~2023-12-29] VITALS: Ht 152.4 cm; Wt 107.7 kg
[2023-12-29 23:03] VITALS: TEMP 98.1
[2023-12-29 23:31] LABS: BASO % 0.2 % (0.0-2.0); EOS # 0.2 K/mm3 (0.0-0.7); EOS % 1.4 % (0.0-4.0); GRAN # 8.2 K/mm3 (1.4-6.5); GRAN % 69.6 % (42.2-75.2); HEMOGLOBIN 10.7 g/dl (12.5-16.0); LYMPH # 2.7 K/mm3 (1.2-3.4); LYMPH % 22.7 % (20.0-51.0); MEAN CELL VOLUME 99 fl (80.0-100.0); MEAN CORPUSCULAR HEMOGLOBIN 31 pg (27-31); MEAN CORPUSCULAR HGB CONC 32 g/dl (33.0-37.0); MEAN PLATELET VOLUME 8.1 fl (7.4-10.4); MONO # 0.7 K/mm3 (0.1-0.6); MONO % 5.7 % (1.7-9.3); PLATELET COUNT 241 K/mm3 (130-400); RED BLOOD COUNT 3.41 M/mm3 (4.10-5.30); REDCELL DISTRIBUTION WIDTH-CV 15.6 % (11.5-14.5)
[2023-12-29 23:34] LABS: HEMATOCRIT 33.9 % (37.0-47.0)
[2023-12-29 23:50] LABS: ALBUMIN 3.1 g/dL (3.4-4.8); BILIRUBIN,TOTAL 0.8 mg/dL (0.2-1.2); CALCIUM 8.7 mg/dL (8.4-10.2); CREATININE, serum 0.91 mg/dL (0.57-1.11); POTASSIUM 3.5 mEq/L (3.5-4.5); TOTAL PROTEIN 6.1 g/dl (6.2-8.1)
[2023-12-30 00:30] VITALS: BP 126/64; PULSE 71
== END 2023-12-30 00:30 | disposition home or self-care (01) ==
LOC: COL.ER 22:39
PROVIDERS: Nurse Practitioner Primary Care
DX: R60.0 Localized edema (principal); Z79.899 Other long term (current) drug therapy

== ENCOUNTER 2024-01-02 14:43 | Emergency (ER) | payer MEDICARE, MEDICAID ==
[~2024-01-02] VITALS: Ht 157.5 cm; Wt 110.9 kg
[2024-01-02 14:50] VITALS: TEMP 96.9
[2024-01-02] MEDS ORDERED: oxyCODONE 5 MG TAB PO ONE (16:45)
[2024-01-02] MEDS ORDERED: CLEOCIN HCL300 MG PO (16:59)
[2024-01-02 17:12] VITALS: BP 136/77; PULSE 82
== END 2024-01-02 17:55 | disposition home or self-care (01) ==
LOC: COL.ER 14:43
DX: S02.32XA Fracture of orbital floor, left side, initial encounter for closed fracture (principal); S51.811A Laceration without foreign body of right forearm, initial encounter; S80.02XA Contusion of left knee, initial encounter; S00.83XA Contusion of other part of head, initial encounter; S00.511A Abrasion of lip, initial encounter; E66.01 Morbid (severe) obesity due to excess calories; Z79.01 Long term (current) use of anticoagulants; W01.198A Fall on same level from slipping, tripping and stumbling with subsequent striking against other object, initial encounter; Y93.01 Activity, walking, marching and hiking

== ENCOUNTER 2024-02-14 13:25 | Emergency (ER) | payer MEDICARE, MEDICAID ==
[~2024-02-14] VITALS: Ht 152.4 cm; Wt 110.5 kg
[2024-02-14 13:39] VITALS: TEMP 98.2
[2024-02-14] MEDS ORDERED: oxyCODONE 5 MG TAB PO ONE (14:45)
[2024-02-14 17:25] VITALS: BP 143/73; PULSE 72
== END 2024-02-14 17:59 | disposition home or self-care (01) ==
LOC: COL.ER 13:25
DX: S70.01XA Contusion of right hip, initial encounter (principal); W18.30XA Fall on same level, unspecified, initial encounter; Y92.009 Unspecified place in unspecified non-institutional (private) residence as the place of occurrence of the external cause

== ENCOUNTER 2024-03-23 13:17 | Emergency (ER) | payer MEDICARE, MEDICAID ==
[~2024-03-23] VITALS: Ht 152.4 cm; Wt 104.5 kg
[2024-03-23 13:29] VITALS: TEMP 98.7
[2024-03-23] MEDS ORDERED: oxyCODONE 5 MG TAB PO ONE (17:00)
[2024-03-23 19:03] VITALS: BP 150/102; PULSE 84
== END 2024-03-23 19:15 | disposition home or self-care (01) ==
LOC: COL.ER 13:17
DX: S41.112A Laceration without foreign body of left upper arm, initial encounter (principal); M24.412 Recurrent dislocation, left shoulder; M25.552 Pain in left hip; M25.551 Pain in right hip; R60.0 Localized edema; Z87.891 Personal history of nicotine dependence; W18.30XA Fall on same level, unspecified, initial encounter